=== PATIENT | male | born 1935 | race Caucasian/White ===

== ENCOUNTER → 2019-07-12 | Outpatient (CLI) | payer MEDICARE, SELFPAY ==
--- NOTE | 2019-07-12 08:00 | PROSB_PTH ---
PATIENT: LOWELL SNOW LOC: [facility] U#:[id number] AGE/SX: 84/M ROOM: RE07/12/[address]: Dr. Laxmi Warren MD : 1935 BED: DIS: 07/12/2019 SPEC #: [id number] RECD: 07/13/19 09:02 STATUS: CARLA TOO #: [id number] GREGORY: 07/12/19 08:[address]: Dominick Gibson DEPT: SURGICAL PATHOLOGY RECD BY: Tiago Garcia ENTERED: 07/13/19 09:03 SP TYPE: PROST BX OTHR DR: Dr. Laxmi Warren MD Tissues: Prostate, NOS Procedures: Surgery Specimen Level IV HEADER OPERATION: Prostate biopsy PRE-OP DIAGNOSIS: R97.20 TISSUE SUBMITTED: Prostate biopsy MICROSCOPIC DIAGNOSIS Prostate, needle core biopsy: Adenocarcinoma. Christy grade: 8 (5+3) Cores involved: 2 out of 2 cores Tissue involved: >95% Greatest tumor length: 1.2 mm Perineural invasion: Present. AM:nereida 07/14/19 COMMENT Case has been reviewed in consultation with Dr. Wild who concurs with the above diagnosis. IDC:SJ MICROSCOPIC DESCRIPTION Slides are reviewed. GROSS DESCRIPTION Received in fixative is one container labeled with the patient's name and designated prostate biopsy. The specimen consists of two elongated fragments of light wright-white soft tissue measuring 1.5 and 2 cm in length and 0.1 cm in diameter. The specimen is totally submitted in one cassette. / KATHRYN:nereida 07/13/19 TC:0 CPT: 64141
== END | disposition home or self-care (01) ==
LOC: LABSPEC 16:39
PROVIDERS: Referring Provider Family Medicine; Visit Provider Family Medicine
DX: R97.20 Elevated prostate specific antigen [PSA] (principal)
CPT/HCPCS: 88305

== ENCOUNTER 2020-04-24 21:27 | Inpatient (IN) | payer MEDICARE, SELFPAY ==
--- NOTE | 2020-04-24 21:21 | ECHOD_ITS ---
Reason For Study: ARRHYTHMIA Procedure This was a 2D Doppler, Color Flow transthoracic echocardiogram. The study was technically difficult. Poor parasternal accoustic windows. Exam performed in supine position due to left hip/leg pain. Exam performed portable in patient room. Dr. Keene notified of abnormal ejection fraction. Left Ventricle Moderately dilated left ventricle. Severe segmental systolic dysfunction (see wall motion). The estimated ejection fraction is 20 %. There is evidence of diastolic dysfunction. Infero-Basal: Severely Hypokinetic. Basal inferoseptal: Severely Hypokinetic. Mid-Anterior : Akinetic. Mid- Lateral : Akinetic. Mid-Posterior: Akinetic. Mid-Inferior: Severely Hypokinetic. Mid-inferoseptal : Akinetic. Mid-anteroseptal : Akinetic. Anterior [place] : Akinetic. Inferior [place] : Severely Hypokinetic. Lateral [place] : Akinetic. Septal [place] : Akinetic. Right Ventricle Normal RV size. Normal systolic function. Atria The left atrium is moderately enlarged. Normal right atrium. No doppler evidence for ASD. Mitral Valve There is no mitral annular calcification. Normal mitral valve. Mild (1+) mitral valve insufficiency. Tricuspid Valve Normal tricuspid valve. Trivial tricuspid valve insufficiency. Right ventricular systolic pressure estimated to be 48 mmHg. Aortic Valve Trisinus/trileaflet aortic valve. Mild focal aortic valve thickening. Mild focal aortic valve calcification. Pulmonic Valve The pulmonic valve is not well visualized. Great Vessels Normal sized aortic root. Pericardium/Pleural No pericardial effusion. MMode/2D Measurements & Calculations LVIDd: 6.1 cm IVSd: 1.2 cm Ao root diam: 3.8 cm LVIDs: 5.1 cm LVPWd: 1.2 cm RVDd: 3.3 cm FS: 16.9 % LAV(MOD-bp): 78.0 ml LA A4 area: 27.0 cm2 LA dimension(2D): 4.4 cm LAV(MOD-bp) Indexed: 40.9 ml/m2 LAV(MOD-sp2): 63.2 ml LAV(MOD-sp4): 86.8 ml Time Measurements MV dec time: 0.13 sec Doppler Measurements & Calculations MV E max rachid: 97.3 cm/sec Lat Peak E' Rachid: 9.6 cm/sec Med Peak E' Rachid: 4.5 cm/sec MV A max rachid: 131.4 cm/sec E/E' lat: 10.1 E/E' med: 21.5 MV E/A: 0.74 Ao V2 max: 147.8 cm/sec LV V1 max: 110.9 cm/sec PA V2 max: 78.1 cm/sec Ao max P.7 mmHg LV V1 max P.9 mmHg TR max rachid: 310.3 cm/sec TR max P.4 mmHg Interpretation Summary The study was technically difficult. Moderately dilated left ventricle. Severe segmental systolic dysfunction (see wall motion). The estimated ejection fraction is 20 %. The left atrium is moderately enlarged. Mild (1+) mitral valve insufficiency. Trivial tricuspid valve insufficiency. Mild focal aortic valve thickening. Mild focal aortic valve calcification. Right ventricular systolic pressure estimated to be 48 mmHg. There is evidence of diastolic dysfunction. Ordering Physician: Remedios Ferguson Referring Physician: NO PCP NOTED Performed By: Amanda Martini, GILBERT, RVT
--- NOTE | 2020-04-24 21:26 | EKG12_ITS ---
Test Reason : AM EKG Blood Pressure : / mmHG Vent. Rate : 081 BPM Atrial Rate : 081 BPM P-R Int : 164 ms QRS Dur : 110 ms QT Int : 374 ms P-R-T Axes : 037 -45 128 degrees QTc Int : 434 ms Sinus rhythm with occasional Premature ventricular complexes Left axis deviation ST & T wave abnormality, consider lateral ischemia Abnormal ECG When compared with ECG of 25-APR-2020 00:31, MANUAL COMPARISON REQUIRED, DATA IS UNCONFIRMED Confirmed by SRIKANTH RAPHAEL, RANDELL ([id number]), loan expeditor JIMENA DAWSON ([id number]) on 05/01/2020 9:40:11 AM Referred By: CORAL Confirmed By:RANDELL DUKE MD
--- NOTE | 2020-04-24 21:34 | HP.PCM_ITS ---
Problem List (1) NSTEMI (non-ST elevated myocardial infarction) Status: Acute (2) Rhabdomyolysis Status: Acute Qualifiers: Rhabdomyolysis type: traumatic Encounter type: initial encounter Qualified Code(s): T79.6XXA - Traumatic ischemia of muscle, initial encounter (3) Closed left hip fracture Status: Acute Qualifiers: Encounter type: initial encounter Qualified Code(s): S72.002A - Fracture of unspecified part of neck of left femur, initial encounter for closed fracture (4) Prostate cancer Status: Suspected (5) Elevated PSA Status: Chronic (6) BPH (benign prostatic hyperplasia) Status: Chronic Qualifiers: Lower urinary tract symptom presence: unspecified whether lower urinary tract symptoms present Qualified Code(s): N40.0 - Benign prostatic hyperplasia without lower urinary tract symptoms (7) HTN (hypertension) Status: Chronic Qualifiers: Hypertension type: essential hypertension Qualified Code(s): I10 - Essential (primary) hypertension (8) Hypothyroidism Status: Chronic Qualifiers: Hypothyroidism type: unspecified Qualified Code(s): E03.9 - Hypothyroidism, unspecified History of Present Illness Date of Admission: 04/24/20 Chief Complaint: Fall, L hip pain. The patient is an 84 y/o M w/ PMHx: Hx Urinary retention with elevated PSA/ ? Prostate CA (patient notes possibly diagnosed but didn't believe them, Chronic venous stasis disease, HTN, Hypothyroidism who presents to the [facility] as direction admission on 04/24/20 from [facility] with history of mechanical fall > 48 hours (Thursday) prior, down since with intractable L hip pain, denies any LOC or head trauma, noted to have tripped and fallen, unable to get up and was eventu ally found by a neighbor with brought to the ED for evaluation. Patient notes pain only with movement but when he has moved he notes pain severe, sharp, focally to the L hip region and 10/10. He again confirms at transition to PCU that he is currently pain free. Patient denied any chest pain or exertional dyspnea. VS: 118/94, 57, 18, 98.7, 97% on RA, 165 lb CBC: WBC 18.1, Hgb 12.6, Plts 225 without shift COVID negative (antigen) CMP: Na 137, K 4.1, Chl 103, CO2 18, BUN/Cr 40/1.3, glucose 145, AST/ALT 204/45, Alk phos 133, T bili 1.0 Trop: High sensentivity 3,174 (0-76 normal) EKG: SR without acute evidence of ischemia TCK: 6481 CXR: No acute cardiopulmonary findings L hip plain film: ? impaced hip fracture CT L hip: Distracted fracture at the base of the left femoral neck CT head and neck: No acute intracranial findings or cervical findings Medications: IVFs. Past Medical History Past Medical History (Chronic Problems): Chronic Problems Elevated PSA (Chronic) BPH (benign prostatic hyperplasia) (Chronic) HTN (hypertension) (Chronic) Hypothyroidism (Chronic) Allergies No Known Allergies Allergy (Verified 04/24/20 21:20) Home Medications: Ambulatory Orders Medication Instructions Recorded Levothyroxine [Synthroid] 25 mcg PO DAILY 04/24/20 Metoprolol(XL)Succ [Toprol Xl 25 mg PO DAILY 04/24/20 (Beta Mynor)] Tamsulosin HCl [Flomax] 0.4 mg PO DAILY 04/24/20 Surgical History: - - Patient notes left-sided temporal and scalp surgery secondary to incident as a youth. Psychiatric History: No pertinent psych hx Lives: Alone Smoking Status: Never smoker Tobacco Use: Non-smoker Alcohol: None Drugs: None - *Family History Maternal History Items: - - Patient denies any market maternal or paternal family history including heart disease, diabetes, cancer but notes I do not see a physician frequently and past and there mid to late 80s. Paternal History Items: - - Patient denies any market maternal or paternal family history including heart disease, diabetes, cancer but notes I do not see a physician frequently and past and there mid to late 80s. Review of Systems Constitutional: Reports: Malaise, Weakness, Fatigue. Denies: Anorexia, Chills, Fever, Weight Change HEENT: Reports: Difficulty Hearing. Denies: Head Aches, Sinus Congestion, Sinus Drainage Cardiovascular: Denies: Chest Pain, Palpitations Respiratory: Denies: Cough, Shortness of breath at rest, Sputum production Gastrointestinal: Denies: Abdominal Pain, Nausea, Vomiting Genitourinary: Reports: Dysuria, Frequency, Retention Musculoskeletal: Reports: Joint Pain, Joint stiffness, Joint swelling, Joint Tenderness, Leg Pain Skin: Reports: Skin Changes. Denies: Rash, Wounds Neurological: Denies: Numbness, Tingling, Focal weakness Psychiatric: Denies: Anxiety, Depression, Homicidal Ideations, Suicidal Ideations Hematologic/ Lymphatic: Reports: Easy Bruising, Easy Bleeding VTE Information - Inpt Only VTE Present on Admission: No VTE Mechan Device Prophylaxis: SCD's VTE Pharm Prophylaxis ordered?: No Reason prophylaxis not ordered:: Medical Contraindication - Holding for OR. Discussed with Cardiology, amenable to asa only given situation. Patient Problems: Active and Suspected Problems NSTEMI (non-ST elevated myocardial infarction) (Acute) Rhabdomyolysis (Acute) Closed left hip fracture (Acute) Prostate cancer (Suspected) Subjective: Patient laying in the PCU bed, no acute distress, notes pain controlled as long as he is not moving, cantankerous. Objective: Physical Examination: General: awake, alert, oriented including to self, place, recent events, remains cooperative but clearly notes he is suspicion of the healthcare industry and physicians, does admit that he may have been told he has prostate cancer but did not believe them, laying in the PCU bed, in no apparent distress. Skin: normal color, turgor, no icterus, cyanosis except significant bilateral lower extremity chronic venous stasis skin changes. HEENT: AT/NC, EOMI, PERRLA, dry MM, poor oral/dental care, no carotid bruits or JVD noted. Lungs: CTA bilaterally, moderate effort, mild decrease BL bases, no rales, ronchi or wheezing. Heart: Regular rate and rhythm; no gallop, rub audible. Abdomen: soft, thinner habitus, NTTP, ND, normal BS, no HSM. Extremities: no cyanosis, clubbing, or edema, see skin w/ significant BL LE stasis disease, L hip fracture. Neurological: patient awake, alert, oriented as noted; cognitive function suspect near baseline intact; pupils equally reactive to light and accomodation; cranial nerves II-XII grossly normal, moving all 4 extremities but limited given L hip fracture, no focal deficits otherwise, strength accordingly severely globally decreased. Psychiatric: affect appears fatigued, cantankerous, no acute evidence of depressive or anxiety feelings. - Physical Exam Current Medications Acetaminophen (Acetaminophen 325 Mg Tablet) 650 mg PO Q6H PRN PRN PRN Reason: Pain Score 1-10/Temp > 100.7 F Al Hydroxide/Mg Hydroxide (Mag Hydrox/Al Hydrox/Simeth 30 Ml Udc) 30 ml PO Q6H PRN PRN PRN Reason: Gastric Burning Albuterol Sulfate (Albuterol 2.5 Mg/3 Ml Vial.Neb.) 2.5 mg INHALATION Q2H PRN PRN PRN Reason: Dyspnea, wheezing Aspirin (Aspirin 81 Mg Tab.Chew) 81 mg PO DAILY@0800 [facility] Atorvastatin Calcium (Atorvastatin Calcium 10 Mg Tablet) 10 mg PO QHS [facility] Famotidine (Famotidine 20 Mg Tablet) 20 mg PO BID [facility] Guaifenesin (Guaifenesin 10 Ml Udc (200mg/10ml)) 20 ml PO Q4H PRN PRN PRN Reason: COUGH Hydralazine HCl (Hydralazine 20 Mg/Ml Vial) 10 mg IV Q4H PRN PRN PRN Reason: SBP > 160 Sodium Chloride () 1,000 mls @ 150 mls/hr IV .Q6H40M [facility] Levothyroxine Sodium (Levothyroxine 25 Mcg Tablet) 25 mcg PO DAILY [facility] Magnesium Hydroxide (Magnesium Hydroxide 30 Ml Udc) 30 ml PO DAILY PRN PRN PRN Reason: Constipation Melatonin (Melatonin 3 Mg Tablet) 3 mg PO QHS PRN PRN PRN Reason: INSOMNIA Metoprolol Succinate (Metoprolol(Xl)Succ 25 Mg Tablet) 25 mg PO DAILY [facility] Morphine Sulfate (Morphine 2 Mg/Ml Syringe) 2 mg IV Q3H PRN PRN PRN Reason: Pain Score 6-10 Nitroglycerin (Nitroglycerin (Inpatient Use) 0.4 Mg Tab.Subl) 0.4 mg SUBLINGUAL Q5M PRN PRN Reason: CARDIAC/CHEST PAIN Ondansetron HCl (Ondansetron 4 Mg/2 Ml Vial) 4 mg IV Q8H PRN PRN PRN Reason: NAUSEA/VOMITING Oxycodone HCl (Oxycodone 5 Mg Tablet) 5 mg PO Q4H PRN PRN PRN Reason: Pain Score 4-5 Prochlorperazine Edisylate (Prochlorperazine 10 Mg/2 Ml Vial) 5 mg IV Q4H PRN PRN PRN Reason: Breakthrough Nausea/Vomiting Psyllium Hydrophilic Mucilloid (Psyllium 1 Packet) 1 packet PO DAILY PRN PRN PRN Reason: Constipation Senna/Docusate Sodium (Senna/Docusate Sodium 1 Tablet) 2 tablet PO BID PRN PRN PRN Reason: Constipation Tamsulosin HCl (Tamsulosin Hcl 0.4 Mg Capsule) 0.4 mg PO DAILY JO Throat Lozenges (Benzocaine/Menthol 1 Lozenge) 1 lozenge MUCOUS MEM Q2H PRN PRN PRN Reason: SORE THROAT Assessment/Plan All Active Problems NSTEMI (non-ST elevated myocardial infarction) (Acute) Rhabdomyolysis (Acute) Closed left hip fracture (Acute) The patient is an 84 y/o M w/ PMHx: Hx Urinary retention with elevated PSA/? Prostate CA, HTN, Hypothyroidism who presents to the [facility] as direction admission on 04/24/20 from [facility] with history of mechanical fall > 48 hours (Thursday) prior, down since with intractable L hip pain, denies any LOC or head trauma, noted to have tripped and fallen, unable to get up and was eventually found by a neighbor with brought to the ED for evaluation with OSH ED evidence NSTEMI, rhabdo and imaging concerning for possible pathological fx. 1. General debility, L hip pain s/p mechanical fall w/ distracted fracture base of the left femoral neck, suspicious for Pathologic fracture: Plain film noting questionable impacted hip fracture with follow-up CT of the left hip with evidence distracted fracture of the base of the left femoral neck, CT head and neck with no acute intracranial findings or cervical findings noted to be cleared per outside facility ED physician. Given patient presentation with NSTEMI and rhabdomyolysis discussed patient prior to decision for transfer with Dr. Cardoza with plan work-up as noted below prior to OR. Orthopedic surgery consulted him outside hospital ED and discussed the case additionally with Dr. Gao given complicated presentation. Will admit to PCU, maintain NPO after midnight with plan cardiology work-up as noted and if cleared possibly able to go to the OR 04/24/2020, continue judicious hydration given rhabdomyolysis concurrently, obtain TSH, UA, UCx, rojas placement, monitor I/Os, frequent positioning, fall precautions, pain, anti-emetic regimen. PT/OT following operative intervention. CM consulted for discharge planning. COVID antigen testing at OSH ED negative of note. NSQIP with patient risk significantly above average and given rhabdomyolysis with NSTEMI risk further elevated with plan cardiology consultation. Discussed patient with cardiology and requested continued cardiac enzyme cycling, repeat EKGs, echocardiogram, planned a.m. evaluation per their service, aspirin therapy, FLP, magnesium level. Given patient's fracture and clinical presentation they noted possible amenability to transition to OR with intervention per Dr. Gao pending these items. Discussed with Dr. Gao and encouraged if able to go to reduce anesthetic exposure, agreed with potentially spinal. 2. Acute NSTEMI versus cardiac enzyme elevation secondary to acute rhabdomyolysis #3: EKG in ED w/ sinus rhythm with no acute evidence of ischemia per outside facility, CXR w/ no acute cardiopulmonary findings. Trop high- sensitivity elevated, 3,174 (0-76 normal). Will admit to PCU, maintain on a monitored bed, continue serial cardiac enzymes and EKGs. Obtain magnesium level upon admission. Continue medical management w/ asa, BB, add low dose statin w/ AM FLP. Echocardiogram requested. Cardiology consulted and will continue plan as noted, pending further evaluation may be potentially cleared for OR for intervention per orthopedic surgery therefore will maintain n.p.o. status as noted above. If significant findings may require cardiac catheterization prior and depending on what is found patient may have difficulty having intervention for #1. ASA, NG, morphine. 3. Acute rhabdomyolysis: Secondary to recent mechanical fall, downtime greater than 48 hours, outside ED total creatinine kinase 6481, administered some IV fluids at outside facility, will continue to aggressively hydrate, trend T CK in a.m., pain control, monitor urine output especially given patient history of urinary retention. 4. Leukocytosis, suspected stress response: Chest x-ray with no acute cardiopulmonary findings, will obtain UA/UX given history of urinary retention with plan Rojas placement given immobility, suspect associated with recent mechanical fall, fracture with prolonged downtime. 5. History of urinary retention, BPH w/ elevated PSA, Suspect Prior Prostate CA Diagnosis from discussions but poor historian: UA, UX as noted per #1, Rojas catheter planned given immobility, monitor for any retention following removal. Continue Flomax. From discussions with Dr. Gao findings on films suspicious for pathological fracture. Will request PSA level. May need urology consultation but patient seems very reticent to be treated or evaluated for cancer and notes disbelieve with prior evaluations. 6. Hypothyroidism: Continue home synthroid regimen, TSH pending. 7. Hypertension: Continue home regimen including metoprolol, pending trending may consider addition of FAVIO inhibitor especially given NSTEMI, PRN hydralazine. 8. GERD: We will maintain on famotidine. 9. Bilateral lower extremity chronic venous stasis skin changes, Possible PAD: We will request wound RN consultation as may benefit from localized care. Notes chronic BL LE pain for several years, will add gabapentin, added asa as noted and low dose statin. May need further vascular evaluation. 10. DVT prophylaxis: SCDs, holding chemoprophylaxis for OR even in setting of NSTEMI as noted, discussed with Dr. Cardoza, amenable to aspirin 81 mg at this time pending further evaluation. 11. CODE status: Patient is having healthcare power of civil attorney nor living will set up but states his niece Seda would certainly be the individual he would appoint to help him make decisions. Encouraged him to consider setting these items up and noted case management/social worker delinquency prevention to assist if he was interested. Discussed CODE status at length including difference between FULL code, DNR-CCA and DNR-CC status. Following discussions about the differences in these status, requested DNR-CCA, no intubation status. Advanced Care Planning Face to Face Time: 16 minutes. Inpatient E&M: 90370 Init Hosp L3 Procedures: 40896 Advncd Care Plan 30 Min
[2020-04-24 22:10] VITALS: BP 127/75; PULSE 88; RESP 18; TEMP 36.8; O2SAT 94
[2020-04-24 22:23] VITALS: BMI 22.0
[2020-04-24 22:24] VITALS: BMI 21.9
[2020-04-24 22:51] VITALS: PULSE 93
[2020-04-24] MEDS: Atorvastatin Calcium 10 MG Tablet PO (23:01)
[2020-04-24] MEDS: Famotidine 20 MG Tablet PO (23:01)
[2020-04-24] MEDS: 0.9% Normal Saline 1,000 ML 150 ML IV (23:01)
[2020-04-25] VITALS (21 sets, daily range): BP systolic 0–154; BP diastolic 0–67; PULSE 0–92; RESP 12–21; TEMP 36–37.2; O2SAT 93–100; BMI 22.0
--- NOTE | 2020-04-25 | IMM_PTH ---
PATIENT: LOWELL SNOW LOC: [facility] U#:[id number] AGE/SX: 84/M ROOM: [facility] RE04/24/[address]: Dr. Syed Webster DO : 1935 BED: 1 DIS: 04/27/2020 SPEC #: [id number] RECD: 05/02/20 11:40 STATUS: CARLA REQ #: [id number] GREGORY: 04/25/20 00:[address]: Malik Gao DEPT: IMMUNOHISTOCHEMISTRY RECD BY: Arlene Stewart ENTERED: 05/02/20 11:42 SP TYPE: IMMUNO OTHR DR: MD Dr. Judd Delaney MD Dr. Mark Tereletsky, DO Dr. Paul Moodispaw, MD No Primary Care Phys Tissues: A - Femoral region, NOS Procedures: RCC (add) NAPSIN A (add) CK20 (add) CK5-6 (add) CK7 (add) CK8 (add) HEP PAR (add) TTF1 (add) Pankeratin (initial) P40 (add) PSAP (add) PHYSICIAN & INSTITUTION [place] [phone] SPECIMEN INFORMATION: Tissue Source: A - Left femoral neck bone biopsy Clinical Info: Left displaced femoral neck fracture Specimen Number: [id number] CPT code: 93995, 26306 x10 METHODOLOGY: Deparaffinized sections of prefer/formalin-fixed tissue or PAP/DQ stained slides are incubated with monoclonal/polyclonal antibodies/oligonucleotide probes. Localization is made via biotin free immunoperoxidase method. Appropriate controls are performed and reacted as expected. Results on target cell population are indicated in the following table: RESULTS: ANTIBODY / CLONE RESULT Block A2 AE1-3 (AE1/AE3/PCK26) positive CK7 (OV-TL12/30) negative CK8 (87cakbI01) positive CK20 (KS20.8) positive, rare cells TTF-1 (8G7G3/1) negative Napsin A (Rabbit Polyclonal) negative HepPar (OCh1E5) negative RCC (PN-15) negative PSAP (PASE/4LJ) positive CK5-6 (D5 & 1684) negative P40 (BC28) negative These tests were developed and their performance characteristics determined by [facility]. They may not have been cleared or approved by the U.[place]. Food and Drug Administration. The FDA has determined that such clearance or approval is not necessary. The above immunohistochemical/dualISH markers are ordered and reviewed by the Pathologist. INTERPRETATION: A. Left femoral neck bone, biopsy: Metastatic adenocarcinoma, consistent with prostatic primary. SJ:nereida 05/04/20
--- NOTE | 2020-04-25 | HIP_PTH ---
PATIENT: LOWELL SNOW LOC: [facility] U#:[id number] AGE/SX: 84/M ROOM: [facility] RE04/24/[address]: Dr. Syed Webster DO : 1935 BED: 1 DIS: 04/27/2020 SPEC #: [id number] RECD: 04/26/20 10:30 STATUS: CARLA REQ #: [id number] GREGORY: 04/25/20 00:[address]: Malik Gao DEPT: SURGICAL PATHOLOGY RECD BY: Nacho Murphy ENTERED: 04/26/20 12:02 SP TYPE: TOTAL HIP OTHR DR: MD Dr. Judd Delaney MD Dr. Mark Tereletsky, DO Dr. Paul Moodispaw, MD Dr. Steven Widmer, MD No Primary Care Phys Tissues: A - Hip, NOS B - Hip, NOS Procedures: Decalcification bone/plaque Surgery Specimen Level IV Comments: @ Ordering doctor for DEC edited from to DR.SWIDME Lino by TERA at 04/26/20 1401 @ Ordering doctor for SUIV edited from to @ by TERA at 04/26/20 1401 @ Submitting doctor edited from to @ by TERA at 04/26/20 1401 HEADER OPERATION: Hemiarthroplasty left hip, posterior, cemented PRE-OP DIAGNOSIS: Left displaced femoral neck fracture TISSUE SUBMITTED: A - Bone biopsy left femoral neck, B - Left femoral head MICROSCOPIC DIAGNOSIS A. Bone biopsy left femoral neck: Pieces of bone with metastatic adenocarcinoma, consistent with prostate primary. See comment. B. Left femoral head and tissue: Femoral head with metastatic adenocarcinoma. See comment. SJ:nereida 05/02/20 COMMENT Tumor is both specimen shows similar morphology and extensive areas of necrosis. A. Immunohistochemistry ([id number]) supports the above diagnosis. Please make reference to previous specimen ([id number]) prostate, needle core biopsy with diagnosis of adenocarcinoma. MICROSCOPIC DESCRIPTION Slides are reviewed. GROSS DESCRIPTION A - Received in fixative is one container labeled with the patient's name and designated bone biopsy left femoral neck. The specimen consists of multiple irregular fragments of light to dark wright bone and indurated soft tissue that in aggregate measure 5 x 5 x 1.2 cm. Transplant Coordinator portions are submitted in two cassettes after decalcification. B - Received is one container labeled with the patient's name and designated femoral head and tissue. The specimen consists of a wright femoral head measuring 7 x 4.5 x 4.5 cm. The articular surface is smooth and glistening. The nonarticular surface is irregular and hemorrhagic consistent with fracture site. Transplant Coordinator sections are submitted in two cassettes after decalcification. / AM:nereida 04/26/20 TC:0 CPT: 01439 x2, 96044 x2
[2020-04-25 00:56] LABS: Color, Urine Yellow (Yellow); Glucose, Dipstick Normal (Normal); Ketone-Dipstick 50 mg/dl (Negative); Leukocyte Esterase-Dipstick 500 /ul (Negative); Nitrite-Dipstick Positive (Negative); Occult Blood-Urine 150 /ul (Negative); Protein-Dipstick 30 mg/dl (Negative); Urine Bilirubin Dipstick Negative (Negative); Urine Clarity Cloudy (Clear); Urine Urobilinogen 1 mg/dl (Normal)
[2020-04-25 01:07] LABS: Bacteria 4+ /hpf (None Seen); White Blood Cells 25-50 SEEN /hpf (0-5)
[2020-04-25] MEDS: oxyCODONE 5 MG Tablet PO (01:07)
[2020-04-25 01:08] LABS: Red Blood Cells-Urine 0-5 SEEN /hpf (0-5)
[2020-04-25 01:09] LABS: Amorphous Sediment 2+; Mucous, Urine RARE /hpf (<or=2+)
[2020-04-25 01:11] LABS: Squamous Epithelial Cells - UA 0-5 SEEN /hpf (0-5)
[2020-04-25 01:12] LABS: Coarse Granular Cast 0-5 SEEN /lpf (0-5 /lpf)
[2020-04-25] MEDS: 0.9% Saline Lock 10 ML Syringe IV (01:59)
[2020-04-25 02:10] LABS: International Normalized Ratio 1.4; Prothrombin Time (Protime)PT. 16.2 SECONDS (11.7-14.9)
[2020-04-25 02:11] LABS: Partial Thromboplast Time 30.9 Seconds (24.1-36.2)
[2020-04-25] MEDS: Heparin Injection (Vial) 5,000 UNIT/ML VIAL 5000 UNIT IV (02:17)
[2020-04-25] MEDS: HEPARIN/D5w 25,000 UNITS 25,000 UNITS/250 ML IV.SOLN. 11 UNITS IV (02:18)
[2020-04-25 03:29] LABS: Absolute Lymphocyte Count 0.83 X10^3/uL (0.83-4.51); Absolute Neutrophil Count 11.1 X10^3/uL (2.0-7.7); Basophil# 0.01 X10^3/uL; Basophil% 0.1 % (0-1); Eosinophil# 0.01 X10^3/uL; Eosinophils% 0.1 % (0-5); Hematocrit 33.1 % (40-54); Hemoglobin 11.1 g/dL (13.0-16.5); Lymphocyte # 0.83 X10^3/ul (4.0); Lymphocyte % 6.4 % (19-41); Mean Corp Hgb Conc 33.5 g/dL (32-36); Mean Corpuscular Hgb 35.6 pg (27.0-32.0); Mean Corpuscular Volume 106.1 fL (80-94); Mean Platelet Vol. 8.7 fl (6.2-12.0); Monocyte% 7.7 % (0-10); NRBC Flagged by Analyzer 0 % (0-5); Neutrophil # 11.05 X10^3/uL (2.7-7.7); Neutrophil % 85.2 % (47-70); Platelet Count 184 K/mm3 (150-450); RBC Distribution Width CV 13.3 % (11.6-14.6); RBC Distribution Width SD 51.6 fl (35.1-43.9); Red Blood Count 3.12 M/mm3 (4.6-6.2)
[2020-04-25 04:09] LABS: ALB/GLOB Ratio 0.9 RATIO (0.9-2.4); AST(SGOT) 147 U/L (15-37); Alanine Aminotransfer ALT/SGPT 37 U/L (16-61); Albumin, Serum 3.1 g/dL (3.2-5.0); Alkaline Phosphatase 115 U/L (45-117); Anion Gap 11 (5-15); BUN 44 mg/dL (7-18); CPK Total, Creatine Kinase 3048 U/L (39-308); Calcium,Total 8.4 mg/dL (8.5-10.1); Chloride 109 mmol/L (98-107); Cholesterol 137 mg/dL (200); EST Glomerular Filtration Rate 75 mL/min (>60); Est Glom Filt Rate - Afr Amer 91 mL/min (>60); Estimated Creatinine Clearance 54.62 ml/min; Globulin 3.4 g/dL (2.2-4.2); Glucose 125 mg/dL (74-106); High Density Lipoprotein 61 mg/dL; Magnesium 2.5 mg/dL (1.6-2.6); Potassium 3.8 mmol/L (3.5-5.1); Protein, Total 6.5 g/dL (6.4-8.2); Sodium Level 140 mmol/L (136-145); T4 Free Direct 0.48 ng/dL (0.76-1.46); Triglycerides 53 mg/dL; Very Low Density Lipoprotein 11 mg/dL (5-40)
[2020-04-25] MEDS: 0.9% Normal Saline 1,000 ML 150 ML IV (05:43)
[2020-04-25] MEDS: Levothyroxine 25 MCG TABLET PO (05:46)
[2020-04-25 08:44] LABS: Partial Thromboplast Time 116.7 Seconds (24.1-36.2)
--- NOTE | 2020-04-25 09:05 | PCM.CONS.C ---
Problem List (1) NSTEMI (non-ST elevated myocardial infarction) Status: Acute (2) Murmur, cardiac Status: Acute (3) Rhabdomyolysis Status: Acute Qualifiers: Rhabdomyolysis type: traumatic Encounter type: initial encounter Qualified Code(s): T79.6XXA - Traumatic ischemia of muscle, initial encounter (4) Closed left hip fracture Status: Acute Qualifiers: Encounter type: initial encounter Qualified Code(s): S72.002A - Fracture of unspecified part of neck of left femur, initial encounter for closed fracture (5) HTN (hypertension) Status: Chronic Qualifiers: Hypertension type: essential hypertension Qualified Code(s): I10 - Essential (primary) hypertension (6) Hypothyroidism Status: Chronic Qualifiers: Hypothyroidism type: unspecified Qualified Code(s): E03.9 - Hypothyroidism, unspecified (7) Elevated PSA Status: Chronic (8) UTI (urinary tract infection) Status: Acute Reason for Consult Date of Consultation: 04/25/20 History of Present Illness: The patient is a 84 year old white male who is referred for preoperative cardiovascular evaluation based upon concerns of abnormal cardiac enzymes and a cardiac murmur in the setting of concerns of rhabdomyolysis secondary to a fall secondary to a left hip fracture superimposed upon a history of hypertension, findings compatible with hypothyroidism, and elevated PSA concerning for prostate carcinoma. The patient states he lives alone. He denies any ongoing chest discomfort or difficulty breathing. He does not recall any palpitations or rapid heart rate sensations. He does not recall any near syncopal or syncopal events. He does not recall falling recently. However he does not recall the details of the fall. He apparently was supine for greater than 24 hours potentially going on 48 hours, based upon information obtained from the [facility] medical staff, before he was found. He was taken to his local emergency department. There he underwent emergency department evaluation. He was diagnosed with an abnormal high-sensitivity troponin I level, abnormal CPK level, abnormal ECG, and findings compatible with a left hip fracture. He was also reported as COVID-19 negative. He was subsequently referred to [facility] for further evaluation and care of his medical/surgical conditions. Since being at [facility] he has been resting in bed. He has denied any ongoing symptoms of classic angina pectoris and has had no obvious evidence of CHF or pulmonary edema. He has remained in sinus rhythm. His troponin I levels have been abnormal. His ECG has demonstrated findings compatible with sinus rhythm with PACs with left axis deviation with nonspecific ST and T wave abnormality with sideration to lateral myocardial ischemia, which, is similar to his outside hospital ECG. He does not recall ever being diagnosed with any cardiovascular condition, undergoing any cardiovascular studies, and states he does not follow on a regular basis with any physician. He lives alone. Of note, during his consultation, he stated that he had been at [facility] for at least a week waiting for further evaluation and care. [] Past Medical History Allergies/Adverse Reactions: Allergies No Known Allergies Allergy (Verified 04/24/20 22:26) Home Medications: Ambulatory Orders Medication Instructions Recorded Levothyroxine [Synthroid] 25 mcg PO DAILY 04/24/20 Metoprolol(XL)Succ [Toprol Xl 25 mg PO DAILY 04/24/20 (Beta Mynor)] Tamsulosin HCl [Flomax] 0.4 mg PO DAILY 04/24/20 Past Medical History (Chronic Problems): Chronic Problems Elevated PSA (Chronic) BPH (benign prostatic hyperplasia) (Chronic) HTN (hypertension) (Chronic) Hypothyroidism (Chronic) Surgical History: - - Patient notes left-sided temporal and scalp surgery secondary to incident as a youth. Psychiatric History: No pertinent psych hx - *Family History Maternal History Items: - - Patient denies any market maternal or paternal family history including heart disease, diabetes, cancer but notes I do not see a physician frequently and past and there mid to late 80s. Paternal History Items: - - Patient denies any market maternal or paternal family history including heart disease, diabetes, cancer but notes I do not see a physician frequently and past and there mid to late 80s. Lives: Alone Smoking Status: Never smoker Tobacco Use: Non-smoker Alcohol: None Drugs: None Review of Systems - Review of Systems General: Denies: Fever, Night Sweats, Fatigue Cardiovascular: Denies: Chest Discomfort, Shortness of Breath, Orthopnea, PND, Peripheral Edema, Palpitations, Lightheadedness, Dizziness, Near Syncope, Syncope Respiratory: Denies: Cough, Sputum Production, Hemoptysis Gastrointestinal: Denies: Hematemesis, Hematochezia, Melena Genitourinary: Denies: Dysuria, Hematuria Muscoloskeletal: Reports: Joint Pain Skin: Denies: Rash Subjectve: Is an 84-year-old white male who appears to be resting reasonably comfortably at the moment in no acute distress. Objective: Vital Signs Temp Pulse Resp BP Pulse Ox 98.0 F 84 17 121/58 H 95 04/25/20 05:32 04/25/20 07:00 04/25/20 05:32 04/25/20 05:32 04/25/20 05:32 Oxygen Delivery Method Room Air Weight: 158 lb 1.143 oz Body Mass Index (BMI) 22.0 Intake and Output for Last 24 Hours 04/23/20 04/24/20 04/25/20 23:59 23:59 23:59 Intake Total 100 / 100 1300.00 / 1300.00 Output Total 350 / 350 450 / 450 Balance -250 / -250 850.00 / 850.00 General: Awake, Cooperative, No Acute Distress HEENT: Atraumatic, Normocephalic, PERRL, EOMI, Sclera Non Icteric Neck: Supple, Good ROM, No JVD Lungs: Clear to auscultation Cardiovascular: Regular Rhythm, Normal S1, Normal S2 Murmur Murmur: Grade 2/6, Mid Systolic, LLSB, LVOT, Sternal Notch Vascular: No Carotid Bruits Abdomen: Bowel Sounds Present, Soft Extremities: No edema 04/25/20 00:45: Troponin I 4.460 H* 04/25/20 00:45: Urine Color Yellow, Urine Clarity Cloudy, Urine pH 5.0, Ur Specific [place] 1.030, Urine Protein 30 H, Urine Glucose (UA) Normal, Urine Ketones 50 H, Urine Occult Blood 150 H, Urine Nitrite Positive H, Urine Bilirubin Negative, Urine Urobilinogen 1 H, Ur Leukocyte Esterase 500 H, Urine RBC 0-5 SEEN, Urine WBC 25-50 SEEN 04/25/20 01:50: PT 16.2 H, INR 1.4, APTT 30.9 04/25/20 03:20: WBC 13.0 H, RBC 3.12 L, Hgb 11.1 L, Hct 33.1 L, MCV 106.1 H, MCH 35.6 H, MCHC 33.5, Plt Count 184, MPV 8.7, Immature Gran % (Auto) 0.500, Neut % (Auto) 85.2 H, Lymph % (Auto) 6.4 L, [place] % (Auto) 7.7, Eos % (Auto) 0.1, Baso % (Auto) 0.1, Absolute Neuts (auto) 11.1 H, Nucleated RBC % 0 04/25/20 03:20: Sodium 140, Potassium 3.8, Chloride 109 H, Carbon Dioxide 20.0 L, Anion Gap 11, BUN 44 H, Creatinine 1.00, Est GFR (MDRD) Af Amer 91, Est GFR (MDRD) Non-Af 75, BUN/Creatinine Ratio 44.0 H, Glucose 125 H, Calcium 8.4 L, Magnesium 2.5, Total Bilirubin 0.60, Troponin I 4.610 H*, Triglycerides 53, Cholesterol 137, LDL Cholesterol 65, VLDL Cholesterol 11, HDL Cholesterol 61 04/25/20 06:30: Troponin I 4.240 H* 04/25/20 08:10: APTT 116.7 H* Rhythm: Sinus rhythm EKG: As noted above ECHO: Pending Assessment/Plan 1. Non-ST segment elevation NV The patient has abnormal cardiac enzymes/troponin I levels at the outside institution as well as at this institution compatible with a non-ST segment elevation NV. It is unclear at this time as to whether or not this may have been a primary acute coronary syndrome event versus a secondary event to supply demand mismatch brought out by his other medical conditions and/or contribution from his findings compatible with rhabdomyolysis. At the present time he is being monitored. His cardiac enzymes have been followed as well as his ECG. An echocardiogram is pending to evaluate his left ventricular wall motion and systolic function. He can be treated medically as deemed appropriate with agent such as aspirin, antiplatelet/anticoagulants, nitrates, beta-blockers, lipid-lowering agents, etc. Ideally he would be considered for further evaluation in the cardiac catheterization laboratory once he is improved from his other multiple medical conditions including concerns of his rhabdomyolysis and any impact on his renal function. However at the moment he also has notation of a left hip fracture requiring left hip ORIF noting that if this does not repair he is then at increased risk for adverse events as a result of a continued left hip fracture such as thromboembolic disease, pneumonitis, etc. Thus at this time he will need to continue conservative medical management, be evaluated by orthopedic surgery and anesthesiology, and considered for left hip repair/ORIF which would be considered from a cardiovascular standpoint a high risk procedure based upon his cardiovascular findings. He would need close monitoring of his cardiac rate, rhythm, and blood pressure during and following his procedure with avoidance of significant fluctuations in his vital signs as well as avoidance of excess IV fluid/volume overload as well as avoidance of excess anemia, etc. 2. Cardiac murmur He does have a cardiac murmur. He is unaware of this. He is to be evaluated with a transthoracic echocardiogram to evaluate his valvular anatomy as well as his ventricular anatomy and function. 3. Rhabdomyolysis Based upon his history and findings he does have a clinical situation compatible with rhabdomyolysis. He will need further evaluation care as deemed appropriate with notation of monitoring his renal function. 4. Left hip fracture Again he has a left hip fracture in need of left hip ORIF. He is to be evaluated by orthopedic surgery and anesthesiology with respect to this issue. 5. Hypertension His blood pressure will be monitored and his medications can be adjusted as deemed appropriate. 6. Hypothyroidism This may be a new diagnosis for him. He will need evaluation care per internal medicine. 7. Elevated PSA The patient has an elevated PSA. This raised concerns of prostate carcinoma. This could raise concerns of metastatic disease. This could raise concern as to whether or not he has a pathologic fracture. He will need further evaluation care per internal medicine as well as other subspecialties as needed. 8. UTI There is concern based upon the patient's findings he may have a UTI. He is undergoing evaluation care per internal medicine for this. Comment: The patient's case has been previously discussed and reviewed with the patient as well as Dr. Ferguson, Dr. Webster, and Dr. Damico. This note was generated using a voice recognition system and there may be incorrect words, spelling or punctuation that were not noted when reviewing the office note prior to saving.
--- NOTE | 2020-04-25 11:25 | RAD_ITS ---
STUDY: X-RAY CHEST REASON FOR EXAM: Male, 84 years old. Hemoptysis, pre op TECHNIQUE: Single AP portable view of the chest. COMPARISON: None. FINDINGS: Scattered calcified granulomas. There is no demonstrated pleural abnormality. Normal size heart. Normal mediastinum and tyrone. Normal visualized pulmonary arteries. There is atherosclerotic calcification of the aortic arch with tortuosity. There are diffuse degenerative changes of the visualized thoracic spine. Normal visualized ribs, clavicles, and shoulders. Hiatal hernia. RAD/Chest 1 View (Portable) IMPRESSION: No acute abnormality is seen. Electronically Signed: Ap Lewis, at 12:19 EST , Service support ,
--- NOTE | 2020-04-25 12:23 | CASEMGMT ---
SW will talk with patient about discharge planning as soon as he returns from surgery and is able to communicate. Barbi VAN MSW
--- NOTE | 2020-04-25 14:04 | CON.PCM_ITS ---
Reason for Consult Date of Consultation: 04/25/20 Reason for Consultation: Left hip fracture. Requested by Dr. Ferguson History of Present Illness: The patient is a 84 year old M with multiple medical comorbidities and poor medical follow-up on a regular basis. Patient fell on Thursday and presented to the emergency department 48 hours later with significant rhabdomyolysis. He also had elevated troponins. Considering his medical comorbidities he was transferred to [facility]. He complains of left hip pain from an orthopedic standpoint. Pain is 8 out of 10. Worse with motion better with immobilization. Located in the groin. He also has a history of prostate cancer which he previously has denied. However he has elevated PSA. He is reportedly a hoarder and is basically shut in. Past Medical History Past Medical History (Chronic Problems): Chronic Problems Elevated PSA (Chronic) BPH (benign prostatic hyperplasia) (Chronic) HTN (hypertension) (Chronic) Hypothyroidism (Chronic) Allergies No Known Allergies Allergy (Verified 04/24/20 22:26) Home Medications: Ambulatory Orders Medication Instructions Recorded Levothyroxine [Synthroid] 25 mcg PO DAILY 04/24/20 Metoprolol(XL)Succ [Toprol Xl 25 mg PO DAILY 04/24/20 (Beta Mynor)] Tamsulosin HCl [Flomax] 0.4 mg PO DAILY 04/24/20 Surgical History: - - Patient notes left-sided temporal and scalp surgery secondary to incident as a youth. Psychiatric History: No pertinent psych hx Lives: Alone Smoking Status: Never smoker Tobacco Use: Non-smoker Alcohol: None Drugs: None - *Family History Maternal History Items: - - Patient denies any market maternal or paternal family history including heart disease, diabetes, cancer but notes I do not see a physician frequently and past and there mid to late 80s. Paternal History Items: - - Patient denies any market maternal or paternal family history including heart disease, diabetes, cancer but notes I do not see a physician frequently and past and there mid to late 80s. Review of Systems Constitutional: Reports: Anorexia. Denies: Chills, Fever HEENT: Denies: Head Aches, Sinus Congestion, Sinus Drainage Cardiovascular: Denies: Chest Pain, Palpitations Respiratory: Denies: Cough, Shortness of breath at rest, Sputum production Gastrointestinal: Denies: Abdominal Pain, Nausea, Vomiting Genitourinary: Denies: Dysuria Musculoskeletal: Reports: Joint Pain, Joint Tenderness Skin: Denies: Rash, Wounds Neurological: Denies: Numbness, Tingling, Focal weakness Psychiatric: Denies: Anxiety, Depression, Homicidal Ideations, Suicidal Ideations Hematologic/ Lymphatic: Denies: Easy Bruising, Easy Bleeding Patient Problems: Active and Suspected Problems NSTEMI (non-ST elevated myocardial infarction) (Acute) Rhabdomyolysis (Acute) Closed left hip fracture (Acute) Prostate cancer (Suspected) Murmur, cardiac (Acute) UTI (urinary tract infection) (Acute) Objective: Left hip x-rays show a oblique femoral neck fracture that extends from the transcervical region to the basicervical region. There is also large cysts in the femoral head as well as a cystic region at the intertrochanteric area which could be consistent with a metastatic lesion. CT scan confirms this. - Physical Exam Vitals/I&O's: Vital Signs Temp Pulse Resp BP Pulse Ox 97.8 F 83 16 133/67 H 99 04/25/20 11:15 04/25/20 11:15 04/25/20 11:15 04/25/20 11:15 04/25/20 11:15 Oxygen Delivery Method Room Air Weight: 158 lb 1.143 oz Body Mass Index (BMI) 22.0 Intake and Output for Last 24 Hours 04/23/20 04/24/20 04/25/20 23:59 23:59 23:59 Intake Total 100 / 100 2097.50 / 2097.50 Output Total 350 / 350 450 / 450 Balance -250 / -250 1647.50 / 1647.50 General: Alert, Cooperative, - - Patient is oriented to person and place. HEENT: Atraumatic, PERRLA, EOMI, Normocephalic Neck: No JVD Lungs: - - Nonlabored breathing Extremities: - - Left lower extremity: Dressing is clean dry and intact Sensations intact to light touch saphenous, sural, superficial peroneal, deep peroneal, and tibial distributions Motors intact EHL, DF, PF calves are soft and supple Microbiology Past 72 Hours 04/25/20 08:15 Mucosa - Nose SARS-CoV-2 Antigen (Rapid) - Final Laboratory Results 04/25/20 00:45: Troponin I 4.460 H* 04/25/20 00:45: Urine Color Yellow, Urine Clarity Cloudy, Urine pH 5.0, Ur Specific [place] 1.030, Urine Protein 30 H, Urine Glucose (UA) Normal, Urine Ketones 50 H, Urine Occult Blood 150 H, Urine Nitrite Positive H, Urine Bilirubin Negative, Urine Urobilinogen 1 H, Ur Leukocyte Esterase 500 H, Urine RBC 0-5 SEEN, Urine WBC 25-50 SEEN, Ur Squamous Epith Cells 0-5 SEEN, Amorphous Sediment 2+, Urine Bacteria 4+, Coarse Granular Casts 0-5 SEEN, Urine Mucus RARE 04/25/20 01:50: PT 16.2 H, INR 1.4, APTT 30.9 04/25/20 03:20: WBC 13.0 H, RBC 3.12 L, Hgb 11.1 L, Hct 33.1 L, MCV 106.1 H, MCH 35.6 H, MCHC 33.5, RDW Std Deviation 51.6 H, RDW Coeff of [place] 13.3, Plt Count 184, MPV 8.7, Immature Gran % (Auto) 0.500, Neut % (Auto) 85.2 H, Lymph % (Auto) 6.4 L, [place] % (Auto) 7.7, Eos % (Auto) 0.1, Baso % (Auto) 0.1, Absolute Neuts (auto) 11.1 H, Absolute Lymphs (auto) 0.83, Nucleated RBC % 0 04/25/20 03:20: Sodium 140, Potassium 3.8, Chloride 109 H, Carbon Dioxide 20.0 L , Anion Gap 11, BUN 44 H, Creatinine 1.00, Estim Creat Clear Calc 54.62, Est GFR (MDRD) Af Amer 91, Est GFR (MDRD) Non-Af 75, BUN/Creatinine Ratio 44.0 H, Glucose 125 H, Calcium 8.4 L, Magnesium 2.5, Total Bilirubin 0.60, AST 147 H, ALT 37, Alkaline Phosphatase 115, Total Creatine Kinase 3048 H, Troponin I 4.610 H*, Total Protein 6.5, Albumin 3.1 L, Globulin 3.4, Albumin/Globulin Ratio 0.9, Triglycerides 53, Cholesterol 137, LDL Cholesterol 65, VLDL Cholesterol 11, HDL Cholesterol 61, Total PSA 202.00 H, TSH 43.40 H, Free T4 0.48 L 04/25/20 06:30: Troponin I 4.240 H* 04/25/20 06:30: Blood Type O NEGATIVE, Antibody Screen NEGATIVE 04/25/20 08:10: APTT 116.7 H* Current Medications Acetaminophen (Acetaminophen 325 Mg Tablet) 650 mg PO Q6H PRN PRN PRN Reason: Pain Score 1-10/Temp > 100.7 F Al Hydroxide/Mg Hydroxide (Mag Hydrox/Al Hydrox/Simeth 30 Ml Udc) 30 ml PO Q6H PRN PRN PRN Reason: Gastric Burning Albuterol Sulfate (Albuterol 2.5 Mg/3 Ml Vial.Neb.) 2.5 mg INHALATION Q2H PRN PRN PRN Reason: Dyspnea, wheezing Aspirin (Aspirin 81 Mg Tab.Chew) 81 mg PO DAILY@0800 [facility] Atorvastatin Calcium (Atorvastatin Calcium 10 Mg Tablet) 10 mg PO QHS [facility] Last Admin: 04/24/20 23:01 Dose: 10 mg Documented by: Famotidine (Famotidine 20 Mg Tablet) 20 mg PO BID [facility] Last Admin: 04/24/20 23:01 Dose: 20 mg Documented by: Gabapentin (Gabapentin 100 Mg Capsule) 100 mg PO BIDCM [facility] Heparin Sodium (Porcine) (Heparin Injection (Vial) 5,000 Unit/Ml Vial) 0 unit IV UD PRN; Protocol PRN Reason: dose adjustment Sodium Chloride () 1,000 mls @ 150 mls/hr IV .Q6H40M [facility] Last Admin: 04/25/20 11:06 Dose: Not Given Documented by: Sodium Chloride () 250 mls @ 15 mls/hr IV .[id number] PRN PRN Reason: Saline Flush Sodium Chloride () 250 mls @ 15 mls/hr IV .[id number] PRN PRN Reason: Additional IVPB Infusion Ceftriaxone Sodium 2 gm/ (Sodium Chloride) 50 mls @ 100 mls/hr IV Q24@2200 [facility] Last Infusion: 04/25/20 02:48 Dose: Infused Documented by: Levothyroxine Sodium (Levothyroxine 25 Mcg Tablet) 25 mcg PO DAILY@0600 [facility] Last Admin: 04/25/20 05:46 Dose: 25 mcg Documented by: Metoprolol Succinate (Metoprolol(Xl)Succ 25 Mg Tablet) 25 mg PO DAILY [facility] Morphine Sulfate (Morphine 2 Mg/Ml Syringe) 2 mg IV Q3H PRN PRN PRN Reason: Pain Score 6-10 Nitroglycerin (Nitroglycerin (Inpatient Use) 0.4 Mg Tab.Subl) 0.4 mg SUBLINGUAL Q5M PRN PRN Reason: CARDIAC/CHEST PAIN Ondansetron HCl (Ondansetron 4 Mg/2 Ml Vial) 4 mg IV Q8H PRN PRN PRN Reason: NAUSEA/VOMITING Oxycodone HCl (Oxycodone 5 Mg Tablet) 5 mg PO Q4H PRN PRN PRN Reason: Pain Score 4-5 Last Admin: 04/25/20 01:07 Dose: 5 mg Documented by: Senna/Docusate Sodium (Senna/Docusate Sodium 1 Tablet) 2 tablet PO BID PRN PRN PRN Reason: Constipation Sodium Chloride (0.9% Saline Lock 10 Ml Syringe) 10 - 40 ml IV UD PRN PRN Reason: SALINE FLUSH Last Admin: 04/25/20 01:59 Dose: 10 ml Documented by: Tamsulosin HCl (Tamsulosin Hcl 0.4 Mg Capsule) 0.4 mg PO DAILY JO Throat Lozenges (Benzocaine/Menthol 1 Lozenge) 1 lozenge MUCOUS MEM Q2H PRN PRN PRN Reason: SORE THROAT Assessment/Plan All Active Problems NSTEMI (non-ST elevated myocardial infarction) (Acute) Rhabdomyolysis (Acute) Closed left hip fracture (Acute) Murmur, cardiac (Acute) UTI (urinary tract infection) (Acute) Patient has left displaced femoral neck fracture. Based on the fracture pattern I would like to proceed with hemiarthroplasty. I did discuss treatment options with the patient which include nonoperative treatment as well as hemiarthroplasty. As I am concerned based on CT scan and x-ray for pathologic process I will also be sending the bone for pathology. Risks and benefits of the procedure were discussed with the patient including but not limited to blood loss, DVTs, PEs, neurovascular image, infection, the risk of anesthesia including loss of life. Considering the patient's recent medical events he does understand the loss of life is significantly high for him. In addition he understands that nonoperative treatment also have a significant risk of pulmonary events and significant disability which could also lead to his demise. Based on this treatment plan decided on was to proceed with a hemiarthroplasty. [facility] Office:
[2020-04-25] MEDS: Cefazolin 2 GM in 0.9% Normal Saline 100 ML IV (14:05)
--- NOTE | 2020-04-25 14:50 | NURSING ---
Report called to Maria De Jesus GARCÍA in ICU.
--- NOTE | 2020-04-25 15:38 | PCM.OPRPT ---
Report of Operation Date of Procedure: 04/25/20 Pre-Operative Diagnosis: Left hip transcervical pathologic femoral neck fracture Post-Operative Diagnosis: Left hip transcervical pathologic femoral neck fracture Surgery/Procedure Performed:: Left posterior hip hemiarthroplasty. Femoral biopsy Description of Surgical Findings:: Stable hip equal leg lengths painting contractor: Abraham Bolaños Type of Anesthesia:: General Anesthesiologist: Judd Damico Special Medications: Ancef Specimen's removed: Femoral head and proximal femoral bone were sent for pathology Estimated Blood Loss (mL): 500 ml Fluids Replaced: 800 mL crystalloid Description of Procedure: Findings: Adequate reduction with stability of the hip and equal leg lengths measured intraoperatively. Components used: 1. Mohit Accolade C size 6 stem, 127 neck angle 2. Mohit Unitrax femoral head 51 mm, +8 mm neck femoral head and sleeve Brief history operative indications: 80-year-old male who was found down with a left hip fracture. Risks and benefits were discussed with the patient which included but were not limited to blood loss, DVTs, PEs, infection, neurovascular damage, and dislocation. In light of all this patient did agree to proceed with a total hip arthroplasty. Procedure: On the date of procedure the patient's l hip was marked in the preoperative area. Patient was then taken back to the operating room where anesthesia assumed control of the C-spine and airway and administered anesthetic. Patient was transferred to the operating table and placed in the lateral decubitus position with the affected hip up. The patient was secured in the bed with the lateral positioners and leg lengths were checked. The l lower extremity was then prepped out in a sterile fashion using chlorhexidine while the surgeon scrubbed. Upon reentering the room the l lower extremity was draped in the standard orthopedic fashion and the incision was marked. A timeout was called and everyone agreed upon the side, the site, the procedure be performed, antibiotics given, and patient's identity. At this time incision was made through skin, subcutaneous tissue, and fat down to fascia. The fascia was then incised and a Charley retractor was placed. The soft tissue was then cleared from the posterior external rotators and the piriformis was identified. Piriformis was taken down and tagged. The remainder of the short external rotators were taken down. Capsulotomy was made and the posterior capsule was tagged. The retractors were then placed inside the capsule. The femoral neck was identified and a cleanup cut was made. At this time a power corkscrew was used to remove the femoral head. Proximal femoral bone was biopsied. At this time all bony debris was removed from the acetabulum. Attention was then turned to the femur where the proximal femur was appropriately exposed using a weller retractor. The box blank machine operator helper was used to remove the lateral bone. Canal finder was used to verify the canal. The proximal femoral femur was then sequentially broached to a size 6 Accolade C broach which had an appropriate fit. The broach was left in place. The high offset neck was chosen and a 51 mm head with 8 mm offset was trialed. The hip was properly reduced using traction and external rotation. Stability was checked with the appropriate amount of shuck, no impingement with external rotation, and stable at 90? flexion and 90? internal rotation. Leg lengths were checked and were found to be equal on the table. Once the hip was determined to be stable the trial components were dislocated. The proximal femur was again exposed and the components were removed from the wound. The final components were verified and opened. The wound was copiously irrigated out with normal saline and prepped for cement while the cement was mixed. The acetabulum was checked for any residual debris. The final components were cemented into place. Excess cement was removed and cement was allowed to cure. Final head was placed. Traction and external rotation were again used to reduce the hip. After adequate reduction the hip remained stable with appropriate leg lengths. The wound was then copiously irrigated with normal saline once more, and hemostasis was obtained. The posterior capsule and piriformis were repaired through drill holes to the greater trochanter . Closure was then done using #1 Vicryl to close the fascia. A 2-0 Vicryl interrupted sutures were used to close the subcutaneous skin. Skin isabella were used for final skin closure. A sterile dressing was placed. Patient was awakened by anesthesia and transferred to the [facility]. Patient was then transferred to the PACU for recovery. Postoperative plan: Patient will get 24 hours postop antibiotics. Patient will get in-house physical therapy and will be weight-bear as tolerated. Patient will follow up in office in 2 weeks for a wound check and x-rays. DVT prophylaxis patient can continue with heparin per primary service while in-house. Recommend discharging on oral Xarelto when discharged from hospital. During the course of the procedure the physician independent producer (PE) played a vital role. Their intimate knowledge of my steps in the procedure aided in safe and expedient completion of the procedure. The PE played a vital rolls in positioning particularly in obtaining the appropriate lateral decubitus position. The PE was also vital in the retraction of soft tissues during the exposure and especially the femoral work as this is a vital part of the procedure to prevent complications and fractures. The PE was also vital and protecting soft tissues during times of bony cuts and reaming. He also played a vital role in closure with my direct supervision. The PE was also important during reduction and dislocation of the joint and trials intraoperatively. - Complications No intraoperative complications - Admit VTE Documentation VTE Present on Admission: No VTE Mechan Device Prophylaxis: SCD's, Thigh High CECILIO Hose VTE Pharm Prophylaxis ordered?: Yes
--- NOTE | 2020-04-25 16:48 | PN_ITS ---
Patient Problems: Active and Suspected Problems NSTEMI (non-ST elevated myocardial infarction) (Acute) Rhabdomyolysis (Acute) Closed left hip fracture (Acute) Prostate cancer (Suspected) Murmur, cardiac (Acute) UTI (urinary tract infection) (Acute) Subjective: Patient was seen and examined today in ICU, he underwent a left hemiarthroplasty today and there were no complications with the surgery. Patient is lethargic secondary to his pain medication and anesthesia at the time of my examination. - Physical Exam Vitals/I&O's: Vital Signs Temp Pulse Resp BP Pulse Ox 96.8 F L 75 18 149/51 H 93 04/25/20 16:17 04/25/20 16:17 04/25/20 16:17 04/25/20 16:17 04/25/20 16:17 Oxygen Delivery Method Room Air Weight: 71.7 kg Body Mass Index (BMI) 22.0 Intake and Output for Last 24 Hours 04/23/20 04/24/20 04/25/20 23:59 23:59 23:59 Intake Total 100 / 100 2327.50 / 2327.50 Output Total 350 / 350 850 / 850 Balance -250 / -250 1477.50 / 1477.50 General: No apparent distress, Well developed, Lethargic HEENT: Atraumatic, PERRLA, Normocephalic Oral: Dry Mucosa Neck: Supple, No JVD, Trachea Midline, Thyroid Normal Size and Texture Lungs: Clear to auscultation, Normal air movement, No rhonchi, No wheeze, No rales Cardiovascular: Regular rate, Regular Rhythm, Normal S1, Normal S2, No murmurs, PMI Normal, No rub noted Abdomen: Bowel Sounds Present, Soft, Non Tender, Non-Distended, No hernias noted Extremities: No clubbing, No cyanosis, No edema, Capillary Refill Less than 3 Seconds Skin: No rashes Neurological: Cranial nerves II-XII grossly intact, Neuro grossly intact Psych/Mental Status: - - Patient is lethargic he has no apparent distress Microbiology Past 72 Hours 04/25/20 08:15 Mucosa - Nose SARS-CoV-2 Antigen (Rapid) - Final Laboratory Results 04/25/20 00:45: Troponin I 4.460 H* 04/25/20 00:45: Urine Color Yellow, Urine Clarity Cloudy, Urine pH 5.0, Ur Specific Marquette 1.030, Urine Protein 30 H, Urine Glucose (UA) Normal, Urine Ketones 50 H, Urine Occult Blood 150 H, Urine Nitrite Positive H, Urine Bilirubin Negative, Urine Urobilinogen 1 H, Ur Leukocyte Esterase 500 H, Urine RBC 0-5 SEEN, Urine WBC 25-50 SEEN, Ur Squamous Epith Cells 0-5 SEEN, Amorphous Sediment 2+, Urine Bacteria 4+, Coarse Granular Casts 0-5 SEEN, Urine Mucus RARE 04/25/20 01:50: PT 16.2 H, INR 1.4, APTT 30.9 04/25/20 03:20: WBC 13.0 H, RBC 3.12 L, Hgb 11.1 L, Hct 33.1 L, MCV 106.1 H, MCH 35.6 H, MCHC 33.5, RDW Std Deviation 51.6 H, RDW Coeff of Chema 13.3, Plt Count 184, MPV 8.7, Immature Gran % (Auto) 0.500, Neut % (Auto) 85.2 H, Lymph % (Auto) 6.4 L, Shelby % (Auto) 7.7, Eos % (Auto) 0.1, Baso % (Auto) 0.1, Absolute Neuts (auto) 11.1 H, Absolute Lymphs (auto) 0.83, Nucleated RBC % 0 04/25/20 03:20: Sodium 140, Potassium 3.8, Chloride 109 H, Carbon Dioxide 20.0 L , Anion Gap 11, BUN 44 H, Creatinine 1.00, Estim Creat Clear Calc 54.62, Est GFR (MDRD) Af Amer 91, Est GFR (MDRD) Non-Af 75, BUN/Creatinine Ratio 44.0 H, Glucose 125 H, Calcium 8.4 L, Magnesium 2.5, Total Bilirubin 0.60, AST 147 H, ALT 37, Alkaline Phosphatase 115, Total Creatine Kinase 3048 H, Troponin I 4.610 H*, Total Protein 6.5, Albumin 3.1 L, Globulin 3.4, Albumin/Globulin Ratio 0.9, Triglycerides 53, Cholesterol 137, LDL Cholesterol 65, VLDL Cholesterol 11, HDL Cholesterol 61, Total PSA 202.00 H, TSH 43.40 H, Free T4 0.48 L 04/25/20 06:30: Troponin I 4.240 H* 04/25/20 06:30: Blood Type O NEGATIVE, Antibody Screen NEGATIVE 04/25/20 08:10: APTT 116.7 H* Current Medications Acetaminophen (Acetaminophen 325 Mg Tablet) 650 mg PO Q6H PRN PRN PRN Reason: Pain Score 1-10/Temp > 100.7 F Al Hydroxide/Mg Hydroxide (Mag Hydrox/Al Hydrox/Simeth 30 Ml Udc) 30 ml PO Q6H PRN PRN PRN Reason: Gastric Burning Albuterol Sulfate (Albuterol 2.5 Mg/3 Ml Vial.Neb.) 2.5 mg INHALATION Q2H PRN PRN PRN Reason: Dyspnea, wheezing Aspirin (Aspirin 81 Mg Tab.Chew) 81 mg PO DAILY@0800 [facility] Atorvastatin Calcium (Atorvastatin Calcium 10 Mg Tablet) 10 mg PO QHS [facility] Last Admin: 04/24/20 23:01 Dose: 10 mg Documented by: Enteral Nutritional Formula (Ensure Surgery 237 Ml Liquid) 237 ml PO TIDCM [facility] Famotidine (Famotidine 20 Mg Tablet) 20 mg PO BID [facility] Last Admin: 04/24/20 23:01 Dose: 20 mg Documented by: Gabapentin (Gabapentin 100 Mg Capsule) 100 mg PO BIDCM [facility] Heparin Sodium (Porcine) (Heparin Injection (Vial) 5,000 Unit/Ml Vial) 0 unit IV UD PRN; Protocol PRN Reason: dose adjustment Sodium Chloride () 1,000 mls @ 150 mls/hr IV .[id number] [facility] Last Admin: 04/25/20 11:06 Dose: Not Given Documented by: Sodium Chloride () 250 mls @ 15 mls/hr IV .[id number] PRN PRN Reason: Saline Flush Sodium Chloride () 250 mls @ 15 mls/hr IV .[id number] PRN PRN Reason: Additional IVPB Infusion Ceftriaxone Sodium 2 gm/ (Sodium Chloride) 50 mls @ 100 mls/hr IV Q24@2200 [facility] Last Infusion: 04/25/20 02:48 Dose: Infused Documented by: Levothyroxine Sodium (Levothyroxine 25 Mcg Tablet) 25 mcg PO DAILY@0600 [facility] Last Admin: 04/25/20 05:46 Dose: 25 mcg Documented by: Metoprolol Succinate (Metoprolol(Xl)Succ 25 Mg Tablet) 25 mg PO DAILY [facility] Morphine Sulfate (Morphine 2 Mg/Ml Syringe) 2 mg IV Q3H PRN PRN PRN Reason: Pain Score 6-10 Nitroglycerin (Nitroglycerin (Inpatient Use) 0.4 Mg Tab.Subl) 0.4 mg SUBLINGUAL Q5M PRN PRN Reason: CARDIAC/CHEST PAIN Ondansetron HCl (Ondansetron 4 Mg/2 Ml Vial) 4 mg IV Q8H PRN PRN PRN Reason: NAUSEA/VOMITING Oxycodone HCl (Oxycodone 5 Mg Tablet) 5 mg PO Q4H PRN PRN PRN Reason: Pain Score 4-5 Last Admin: 04/25/20 01:07 Dose: 5 mg Documented by: Promethazine HCl (Promethazine 25 Mg/Ml Syringe) 12.5 mg IM Q6H PRN PRN; Protocol PRN Reason: NAUSEA/VOMITING Senna/Docusate Sodium (Senna/Docusate Sodium 1 Tablet) 2 tablet PO BID PRN PRN PRN Reason: Constipation Sodium Chloride (0.9% Saline Lock 10 Ml Syringe) 10 - 40 ml IV UD PRN PRN Reason: SALINE FLUSH Last Admin: 04/25/20 01:59 Dose: 10 ml Documented by: Tamsulosin HCl (Tamsulosin Hcl 0.4 Mg Capsule) 0.4 mg PO DAILY JO Throat Lozenges (Benzocaine/Menthol 1 Lozenge) 1 lozenge MUCOUS MEM Q2H PRN PRN PRN Reason: SORE THROAT Medical Necessity - Tobacco Use Smoking Status: Never smoker Tobacco Use: Non-smoker Assessment/Plan All Active Problems NSTEMI (non-ST elevated myocardial infarction) (Acute) Rhabdomyolysis (Acute) Closed left hip fracture (Acute) Murmur, cardiac (Acute) UTI (urinary tract infection) (Acute) #1 transcervical left hip fracture-postop day 0 left hip hemiarthroplasty- patient will be seen by PT and OT, he will most probably need placement in a fdc facility for short-term rehab services. #2 pld-[id number]-scnnucvbye is participating in his care #3 hypothyroidism-I will start the patient back up on his thyroid medication which she had not been taking at home #4 cardiomyopathy-probably ischemic in nature, cardiology is participating in his care #5 rhabdomyolysis-due to the patient's low ejection fraction of 20%, fluids will have to be monitored closely, repeat labs #6 prostate cancer-patient has refused treatment in the past, I talked at length with his niece by phone today and he has seen Dr. Gibson in the past and has refused treatment for his prostate cancer. #7 chronic urinary retention-patient has a chronic Ramirez catheter #8 cystitis-patient will remain on antibiotics Inpatient E&M: 33695 Subs Hosp L2
[2020-04-25] MEDS: 0.9% Normal Saline 1,000 ML 75 ML IV (19:00)
--- NOTE | 2020-04-25 19:30 | RAD_ITS ---
STUDY: X-RAY - PELVIS AND LEFT HIP REASON FOR EXAM: Male, 84 years old. POST OP LEFT HIP TECHNIQUE: 2 views of the pelvis and hip. COMPARISON: None. FINDINGS: Status post left total hip replacement. Femoral and acetabular components are in situ. Alignment is anatomic. No acute fracture or dislocation. Postsurgical changes including soft tissue gas and skin isabella. RAD/Hip Min 2 Views (Portable) IMPRESSION: Anatomic alignment status post total hip replacement. Electronically Signed: Mer Martin MD at 21:16 EST Tel , Service support ,
[2020-04-25] MEDS: Atorvastatin Calcium 10 MG Tablet PO (21:08)
[2020-04-25] MEDS: Famotidine 20 MG Tablet PO (21:08)
[2020-04-26] VITALS (23 sets, daily range): BP systolic 105–147; BP diastolic 43–65; PULSE 71–97; RESP 14–25; TEMP 36.5–37.1; O2SAT 92–100
[2020-04-26 03:49] LABS: Anion Gap 5 (5-15); BUN 40 mg/dL (7-18); BUN/Creat Ratio 39.6 RATIO (10-20); Calcium,Total 8.1 mg/dL (8.5-10.1); Chloride 111 mmol/L (98-107); Creatinine, Serum 1.01 mg/dL (0.70-1.30); EST Glomerular Filtration Rate 75 mL/min (>60); Est Glom Filt Rate - Afr Amer 90 mL/min (>60); Estimated Creatinine Clearance 54.23 ml/min; Glucose 118 mg/dL (74-106); Hematocrit 30.8 % (40-54); Hemoglobin 10.2 g/dL (13.0-16.5); Mean Corp Hgb Conc 33.1 g/dL (32-36); Mean Corpuscular Hgb 36.3 pg (27.0-32.0); Mean Corpuscular Volume 109.6 fL (80-94); Platelet Count 172 K/mm3 (150-450); Potassium 3.8 mmol/L (3.5-5.1); RBC Distribution Width CV 13.2 % (11.6-14.6); RBC Distribution Width SD 52.9 fl (35.1-43.9); Red Blood Count 2.81 M/mm3 (4.6-6.2); Sodium Level 140 mmol/L (136-145); White Blood Count 10.3 K/mm3 (4.4-11.0)
--- NOTE | 2020-04-26 05:55 | EKG12_ITS ---
Test Reason : DIRECT ADMISSION EKG Blood Pressure : / mmHG Vent. Rate : 092 BPM Atrial Rate : 092 BPM P-R Int : 162 ms QRS Dur : 104 ms QT Int : 372 ms P-R-T Axes : 035 -55 113 degrees QTc Int : 460 ms Sinus rhythm with Premature atrial complexes Left axis deviation ST & T wave abnormality, consider lateral ischemia Abnormal ECG No previous ECGs available Confirmed by SRIKANTH RAPHAEL, RANDELL ([id number]), online editor JIMENA DAWSON ([id number]) on 04/30/2020 10:41:22 AM Referred By: TR Confirmed By:RANDELL DUEK MD
[2020-04-26] MEDS: Levothyroxine 25 MCG TABLET PO (05:58)
[2020-04-26] MEDS: 0.9% Normal Saline 1,000 ML 75 ML IV ×2 (05:58→18:30)
[2020-04-26] MEDS: Famotidine 20 MG Tablet PO ×2 (08:13→20:58)
[2020-04-26] MEDS: Metoprolol(XL)Succ 25 MG Tablet PO (08:13)
[2020-04-26] MEDS: Aspirin 81 MG TAB.CHEW PO (08:13)
[2020-04-26] MEDS: Ensure Surgery 237 ML LIQUID PO (08:13)
[2020-04-26] MEDS: Tamsulosin HCl 0.4 MG Capsule PO (08:14)
--- NOTE | 2020-04-26 09:43 | PCM.PN.ORT ---
Patient Problems: Active and Suspected Problems NSTEMI (non-ST elevated myocardial infarction) (Acute) Rhabdomyolysis (Acute) Closed left hip fracture (Acute) Prostate cancer (Suspected) Murmur, cardiac (Acute) UTI (urinary tract infection) (Acute) Subjective: The patient was sitting in bed upon examination in the intensive care unit. Patient denies any chest pain, shortness of breath, dizziness, lightheadedness, nausea or vomiting, or calf pain. Pain is controlled on medications. No adverse overnight events. Overall patient is doing well with regards to the hip. I did discuss case with the hospitalist and at this time patient will be transitioned to the PCU floor. They are attempting to get him set up for nursing home facility for appropriate rehab. Objective: Vital signs stable and afebrile. Patient is able to plantarflex and dorsiflex actively. Sensation is intact to light touch to saphenous, sural, superficial and deep peroneal, and tibial distribution. Dressing is clean dry and intact. Negative Homans bilaterally, negative signs and symptoms of DVT. - Physical Exam Vitals/I&O's: Vital Signs Temp Pulse Resp BP Pulse Ox 98 F 80 18 140/63 H 92 04/26/20 07:33 04/26/20 09:00 04/26/20 09:00 04/26/20 09:00 04/26/20 09:00 Oxygen Delivery Method Nasal Cannula Weight: 75 kg Body Mass Index (BMI) 22.0 Intake and Output for Last 24 Hours 04/24/20 04/25/20 04/26/20 23:59 23:59 23:59 Intake Total 100 / 100 2477.50 / 2727.50 1147.5 / 1147.5 Output Total 350 / 350 1000 / 1150 350 / 350 Balance -250 / -250 1477.50 / 1577.50 797.5 / 797.5 General: Alert, Oriented x3, Cooperative, No apparent distress Microbiology Past 72 Hours 04/25/20 08:15 Mucosa - Nose SARS-CoV-2 Antigen (Rapid) - Final Laboratory Results 04/26/20 03:30: WBC 10.3, RBC 2.81 L, Hgb 10.2 L, Hct 30.8 L, MCV 109.6 H, MCH 36.3 H, MCHC 33.1, RDW Std Deviation 52.9 H, RDW Coeff of Chema 13.2, Plt Count 172, MPV 9.0 04/26/20 03:30: Sodium 140, Potassium 3.8, Chloride 111 H, Carbon Dioxide 24.0, Anion Gap 5, BUN 40 H, Creatinine 1.01, Estim Creat Clear Calc 54.23, Est GFR (MDRD) Af Amer 90, Est GFR (MDRD) Non-Af 75, BUN/Creatinine Ratio 39.6 H, Glucose 118 H, Calcium 8.1 L Current Medications Acetaminophen (Acetaminophen 325 Mg Tablet) 650 mg PO Q6H PRN PRN PRN Reason: Pain Score 1-10/Temp > 100.7 F Albuterol Sulfate (Albuterol 2.5 Mg/3 Ml Vial.Neb.) 2.5 mg INHALATION Q2H PRN PRN PRN Reason: Dyspnea, wheezing Aspirin (Aspirin 81 Mg Tab.Chew) 81 mg PO DAILY@0800 [facility] Last Admin: 04/26/20 08:13 Dose: 81 mg Documented by: Atorvastatin Calcium (Atorvastatin Calcium 10 Mg Tablet) 10 mg PO QHS [facility] Last Admin: 04/25/20 21:08 Dose: 10 mg Documented by: Enteral Nutritional Formula (Ensure Surgery 237 Ml Liquid) 237 ml PO TIDCM [facility] Last Admin: 04/26/20 08:13 Dose: 237 ml Documented by: Famotidine (Famotidine 20 Mg Tablet) 20 mg PO BID [facility] Last Admin: 04/26/20 08:13 Dose: 20 mg Documented by: Sodium Chloride () 250 mls @ 15 mls/hr IV .[id number] PRN PRN Reason: Saline Flush Sodium Chloride () 250 mls @ 15 mls/hr IV .[id number] PRN PRN Reason: Additional IVPB Infusion Ceftriaxone Sodium 2 gm/ (Sodium Chloride) 50 mls @ 100 mls/hr IV Q24@2200 [facility] Last Infusion: 04/25/20 21:40 Dose: Infused Documented by: Sodium Chloride () 1,000 mls @ 75 mls/hr IV .[id number] [facility] Last Admin: 04/26/20 05:58 Dose: 75 mls/hr Documented by: Levothyroxine Sodium (Levothyroxine 25 Mcg Tablet) 25 mcg PO DAILY@0600 [facility] Last Admin: 04/26/20 05:58 Dose: 25 mcg Documented by: Lisinopril (Lisinopril 5 Mg Tablet) 5 mg PO DAILY [facility] Metoprolol Succinate (Metoprolol(Xl)Succ 25 Mg Tablet) 25 mg PO DAILY [facility] Last Admin: 04/26/20 08:13 Dose: 25 mg Documented by: Morphine Sulfate (Morphine 2 Mg/Ml Syringe) 2 mg IV Q3H PRN PRN PRN Reason: Pain Score 6-10 Nitroglycerin (Nitroglycerin (Inpatient Use) 0.4 Mg Tab.Subl) 0.4 mg SUBLINGUAL Q5M PRN PRN Reason: CARDIAC/CHEST PAIN Ondansetron HCl (Ondansetron 4 Mg/2 Ml Vial) 4 mg IV Q8H PRN PRN PRN Reason: NAUSEA/VOMITING Oxycodone HCl (Oxycodone 5 Mg Tablet) 5 mg PO Q4H PRN PRN PRN Reason: Pain Score 4-5 Last Admin: 04/25/20 01:07 Dose: 5 mg Documented by: Senna/Docusate Sodium (Senna/Docusate Sodium 1 Tablet) 2 tablet PO BID PRN PRN PRN Reason: Constipation Sodium Chloride (0.9% Saline Lock 10 Ml Syringe) 10 - 40 ml IV UD PRN PRN Reason: SALINE FLUSH Last Admin: 04/25/20 01:59 Dose: 10 ml Documented by: Tamsulosin HCl (Tamsulosin Hcl 0.4 Mg Capsule) 0.4 mg PO DAILY [facility] Last Admin: 04/26/20 08:14 Dose: 0.4 mg Documented by: Medical Necessity - Tobacco Use Smoking Status: Never smoker Tobacco Use: Non-smoker Assessment/Plan All Active Problems NSTEMI (non-ST elevated myocardial infarction) (Acute) Rhabdomyolysis (Acute) Closed left hip fracture (Acute) Murmur, cardiac (Acute) UTI (urinary tract infection) (Acute) 1. S/P left hip hemiarthroplasty posterior approach POD #1 2. Continue Pain Medications: Tylenol primarily for pain control with oxycodone for breakthrough pain 3. DVT Prophylaxis: Defer to primary service. Recommend placing patient on possible Xarelto postoperatively upon discharge 4. PT/OT: Weightbearing as tolerated with walker. Follow posterior hip dislocation precautions for 3 months postoperatively. 5. H & H: 10.2/30.8, asymptomatic. Postoperative anemia secondary to acute blood loss from surgery without any intraoperative complications 6. Encouraged Incentive Spirometry 7. Continue postoperative medical management per medicine 8. Disposition: From an orthopedic standpoint we will sign off of the patient. Patient will continue with weightbearing as tolerated with walker following posterior hip dislocation precautions for 3 months postoperatively. Recommend continuing with pain medications as above. Defer DVT prophylaxis to primary service but would recommend possible Xarelto upon discharge. Dressing should remain on for 5 days postoperatively. He is able to shower with the dressing as long as it is intact to the skin. We would like to see the patient back in 2 weeks for x-rays and incision check in our office. Please contact orthopedics with any concerns or complications. Otherwise appreciate consult and management of the patient.
[2020-04-26] MEDS: Lisinopril 5 MG Tablet PO (09:52)
--- NOTE | 2020-04-26 10:13 | CASEMGMT ---
Addendum entered by Kandi Elliott 04/26/20 10:42: Social Work SW spoke with Abraham Bolaños orthopedic PA who is requesting appt be set for two week followup with [facility]. Phone call to [facility] and appt set for 05/10/20 at 1515 with 1500 arrival time. Appointment entered on pt d/c appointment list. SUZY Hyatt Original Note: Social Work SW met with pt and introduced self and role of SW. Pt lives at home alone in a one story home with two steps to enter. Pt states he has been independent at home, but does not get into shower any longer for safety reasons and has groceries delivered. Pt has a home health nurse through [facility] who visits weekly but pt does not know why she comes. No other home services. Pt does have a cane but does not use it and states his home is too crowded to use a walker. No PCP listed but pt says his niece has arranged for Dr. Carmen to make home visits but pt feels this is too expensive. Pt denies having a living will or health care POA but states his niece Neva Jenkins is his contact, pt has no children and Neva mother is only living sibling. Discussed discharge plan with pt and he is aware that he cannot return home at this time and will need SNF for rehabilitation. Options provided and pt choosing [facility]. Phone call to TCU and left requesting bed availability. With pt permission, phone call to Niece Neva who is unable to talk at this time but will call SW back later today. Plan: TCU, pending acceptance and insurance authorization SUZY Hyatt
--- NOTE | 2020-04-26 10:48 | PN_ITS ---
Patient Problems: Active and Suspected Problems NSTEMI (non-ST elevated myocardial infarction) (Acute) Rhabdomyolysis (Acute) Closed left hip fracture (Acute) Prostate cancer (Suspected) Murmur, cardiac (Acute) UTI (urinary tract infection) (Acute) Subjective: Patient was seen and examined today in ICU, he is alert and oriented, he does not complain of shortness of breath or chest discomfort to this examiner. According to nursing, there is been no significant arrhythmias noted on the monitor this has been in the ICU. I talked briefly with cardiology today and they said it was okay to move the patient to PCU for further care. Talked briefly with orthopedic surgery about his care. Objective: General: No apparent distress, Well developed, alert HEENT: Atraumatic, PERRLA, Normocephalic Oral: Dry Mucosa Neck: Supple, No JVD, Trachea Midline, Thyroid Normal Size and Texture Lungs: Clear to auscultation, Normal air movement, No rhonchi, No wheeze, No rales Cardiovascular: Regular rate, Regular Rhythm, Normal S1, Normal S2, No murmurs, PMI Normal, No rub noted Abdomen: Bowel Sounds Present, Soft, Non Tender, Non-Distended, No hernias noted Extremities: No clubbing, No cyanosis, No edema, Capillary Refill Less than 3 Seconds Skin: No rashes Neurological: Cranial nerves II-XII grossly intact, Neuro grossly intact Psych/Mental Status: - - Patient is alert and oriented, he does not seem depressed or anxious - Physical Exam Vitals/I&O's: Vital Signs Temp Pulse Resp BP Pulse Ox 98 F 80 18 140/63 H 98 04/26/20 07:33 04/26/20 09:00 04/26/20 09:00 04/26/20 09:00 04/26/20 10:34 Oxygen Delivery Method Room Air Weight: 75 kg Body Mass Index (BMI) 22.0 Intake and Output for Last 24 Hours 04/24/20 04/25/20 04/26/20 23:59 23:59 23:59 Intake Total 100 / 100 2477.50 / 2727.50 1147.5 / 1147.5 Output Total 350 / 350 1000 / 1150 350 / 350 Balance -250 / -250 1477.50 / 1577.50 797.5 / 797.5 Microbiology Past 72 Hours 04/25/20 08:15 Mucosa - Nose SARS-CoV-2 Antigen (Rapid) - Final Laboratory Results 04/26/20 03:30: WBC 10.3, RBC 2.81 L, Hgb 10.2 L, Hct 30.8 L, MCV 109.6 H, MCH 36.3 H, MCHC 33.1, RDW Std Deviation 52.9 H, RDW Coeff of Chema 13.2, Plt Count 172, MPV 9.0 04/26/20 03:30: Sodium 140, Potassium 3.8, Chloride 111 H, Carbon Dioxide 24.0, Anion Gap 5, BUN 40 H, Creatinine 1.01, Estim Creat Clear Calc 54.23, Est GFR (MDRD) Af Amer 90, Est GFR (MDRD) Non-Af 75, BUN/Creatinine Ratio 39.6 H, Glucose 118 H, Calcium 8.1 L Current Medications Acetaminophen (Acetaminophen 325 Mg Tablet) 650 mg PO Q6H PRN PRN PRN Reason: Pain Score 1-10/Temp > 100.7 F Albuterol Sulfate (Albuterol 2.5 Mg/3 Ml Vial.Neb.) 2.5 mg INHALATION Q2H PRN PRN PRN Reason: Dyspnea, wheezing Aspirin (Aspirin 81 Mg Tab.Chew) 81 mg PO DAILY@0800 [facility] Last Admin: 04/26/20 08:13 Dose: 81 mg Documented by: Atorvastatin Calcium (Atorvastatin Calcium 10 Mg Tablet) 10 mg PO QHS [facility] Last Admin: 04/25/20 21:08 Dose: 10 mg Documented by: Enteral Nutritional Formula (Ensure Surgery 237 Ml Liquid) 237 ml PO TIDCM [facility] Last Admin: 04/26/20 08:13 Dose: 237 ml Documented by: Famotidine (Famotidine 20 Mg Tablet) 20 mg PO BID [facility] Last Admin: 04/26/20 08:13 Dose: 20 mg Documented by: Sodium Chloride () 250 mls @ 15 mls/hr IV .[id number] PRN PRN Reason: Saline Flush Sodium Chloride () 250 mls @ 15 mls/hr IV .[id number] PRN PRN Reason: Additional IVPB Infusion Ceftriaxone Sodium 2 gm/ (Sodium Chloride) 50 mls @ 100 mls/hr IV Q24@2200 [facility] Last Infusion: 04/25/20 21:40 Dose: Infused Documented by: Sodium Chloride () 1,000 mls @ 75 mls/hr IV .[id number] [facility] Last Admin: 04/26/20 05:58 Dose: 75 mls/hr Documented by: Levothyroxine Sodium (Levothyroxine 25 Mcg Tablet) 25 mcg PO DAILY@0600 [facility] Last Admin: 04/26/20 05:58 Dose: 25 mcg Documented by: Lisinopril (Lisinopril 5 Mg Tablet) 5 mg PO DAILY [facility] Last Admin: 04/26/20 09:52 Dose: 5 mg Documented by: Metoprolol Succinate (Metoprolol(Xl)Succ 25 Mg Tablet) 25 mg PO DAILY [facility] Last Admin: 04/26/20 08:13 Dose: 25 mg Documented by: Morphine Sulfate (Morphine 2 Mg/Ml Syringe) 2 mg IV Q3H PRN PRN PRN Reason: Pain Score 6-10 Nitroglycerin (Nitroglycerin (Inpatient Use) 0.4 Mg Tab.Subl) 0.4 mg SUBLINGUAL Q5M PRN PRN Reason: CARDIAC/CHEST PAIN Ondansetron HCl (Ondansetron 4 Mg/2 Ml Vial) 4 mg IV Q8H PRN PRN PRN Reason: NAUSEA/VOMITING Oxycodone HCl (Oxycodone 5 Mg Tablet) 5 mg PO Q4H PRN PRN PRN Reason: Pain Score 4-5 Last Admin: 04/25/20 01:07 Dose: 5 mg Documented by: Senna/Docusate Sodium (Senna/Docusate Sodium 1 Tablet) 2 tablet PO BID PRN PRN PRN Reason: Constipation Sodium Chloride (0.9% Saline Lock 10 Ml Syringe) 10 - 40 ml IV UD PRN PRN Reason: SALINE FLUSH Last Admin: 04/25/20 01:59 Dose: 10 ml Documented by: Tamsulosin HCl (Tamsulosin Hcl 0.4 Mg Capsule) 0.4 mg PO DAILY [facility] Last Admin: 04/26/20 08:14 Dose: 0.4 mg Documented by: Medical Necessity - Tobacco Use Smoking Status: Never smoker Tobacco Use: Non-smoker Assessment/Plan All Active Problems NSTEMI (non-ST elevated myocardial infarction) (Acute) Rhabdomyolysis (Acute) Closed left hip fracture (Acute) Murmur, cardiac (Acute) UTI (urinary tract infection) (Acute) #1 transcervical left hip fracture-postop day 1 left hip hemiarthroplasty- patient will be seen by PT and OT, he will most probably need placement in a long term facility for short-term rehab services. Patient will be moved to PCU for further care #2 [id number] is participating in his care #3 hypothyroidism-patient is currently on thyroid replacement medication #4 cardiomyopathy-probably ischemic in nature, cardiology is participating in his care #5 rhabdomyolysis-due to the patient's low ejection fraction of 20%, fluids will have to be monitored closely, patient's creatinine is stable #6 prostate cancer-patient has refused treatment in the past, I talked at length with his niece by phone today and he has seen Dr. Gibson in the past and has refused treatment for his prostate cancer. #7 chronic urinary retention-patient has a chronic Ramirez catheter #8 cystitis-patient will remain on antibiotics #9 anemia blood loss-expected from acute hip fracture, no need for transfusion at this time, will repeat CBC tomorrow Inpatient E&M: 62138 Subs Hosp L2
--- NOTE | 2020-04-26 13:28 | CASEMGMT ---
Social Work Return call from Erin in TCU and they are able to accept pt. Precert to be started. SW met with pt and informed of this and pt is agreeable to discharge to TCU when insurance authorizes. Plan: TCU, pending insurance SUZY Gagnon
--- NOTE | 2020-04-26 15:02 | PCM.PN.CARD ---
Subjectve: The patient was evaluated earlier this day. He was awake and alert. He denied any ongoing concerning chest discomfort or difficulty breathing. He does state he lives alone and he believes in the body naturally healing itself and does not like to take medications and thus does not do so. Objective: Vital Signs Temp Pulse Resp BP Pulse Ox 98.6 F 80 21 H 110/49 L 98 04/26/20 12:00 04/26/20 14:00 04/26/20 14:00 04/26/20 14:00 04/26/20 14:00 Oxygen Delivery Method Room Air Weight: 165 lb 5.547 oz Body Mass Index (BMI) 22.0 Intake and Output for Last 24 Hours 04/24/20 04/25/20 04/26/20 23:59 23:59 23:59 Intake Total 100 / 100 2477.50 / 2727.50 1347.5 / 1347.5 Output Total 350 / 350 1000 / 1150 650 / 650 Balance -250 / -250 1477.50 / 1577.50 697.5 / 697.5 General: Awake, Cooperative, No Acute Distress HEENT: Atraumatic, Normocephalic, PERRL, EOMI, Sclera Non Icteric Neck: No JVD Lungs: Clear to auscultation Cardiovascular: Regular Rhythm, Normal S1, Normal S2 Murmur Murmur: Grade 2/6, Mid Systolic, LLSB, LVOT, Sternal Notch Abdomen: Bowel Sounds Present, Soft Extremities: No edema 04/26/20 03:30: WBC 10.3, RBC 2.81 L, Hgb 10.2 L, Hct 30.8 L, MCV 109.6 H, MCH 36.3 H, MCHC 33.1, Plt Count 172, MPV 9.0 04/26/20 03:30: Sodium 140, Potassium 3.8, Chloride 111 H, Carbon Dioxide 24.0, Anion Gap 5, BUN 40 H, Creatinine 1.01, Est GFR (MDRD) Af Amer 90, Est GFR (MDRD) Non-Af 75, BUN/Creatinine Ratio 39.6 H, Glucose 118 H, Calcium 8.1 L Rhythm: Sinus rhythm: PVCs EKG: Sinus rhythm; left axis deviation; ST/T wave abnormality: Consider myocardial ischemia-lateral ECHO: Interpretation Summary The study was technically difficult. Moderately dilated left ventricle. Severe segmental systolic dysfunction (see wall motion). The estimated ejection fraction is 20 %. The left atrium is moderately enlarged. Mild (1+) mitral valve insufficiency. Trivial tricuspid valve insufficiency. Mild focal aortic valve thickening. Mild focal aortic valve calcification. Right ventricular systolic pressure estimated to be 48 mmHg. There is evidence of diastolic dysfunction. Medical Necessity - Tobacco Use Smoking Status: Never smoker Tobacco Use: Non-smoker Assessment/Plan 1. Non-ST segment elevation NV The patient has abnormal cardiac enzymes/troponin I levels at the outside institution as well as at this institution compatible with a non-ST segment elevation NV. It is unclear at this time as to whether or not this may have been a primary acute coronary syndrome event versus a secondary event to supply demand mismatch brought out by his other medical conditions and/or contribution from his findings compatible with rhabdomyolysis. At the present time he is being monitored. His cardiac enzymes have been followed as well as his ECG. An echocardiogram has been completed. The findings are as noted. He can be treated medically as deemed appropriate with agent such as aspirin, antiplatelet/anticoagulants, nitrates, beta-blockers, lipid-lowering agents, etc. Ideally he would be considered for further evaluation in the cardiac catheterization laboratory once he is improved from his other multiple medical conditions including concerns of his rhabdomyolysis and any impact on his renal function. However, at this time, he does not state that he wants to proceed in such a manner and states that he does not believe in taking medications. Thus it would be difficult to proceed with diagnostic cardiac catheterization and if need be revascularization therapy noting the patient does not believe in taking medical therapy which without such could be detrimental to him especially with her revascularization procedure. At the present time he is going to continue conservative medical management. 2. Cardiac murmur He does have a cardiac murmur. His echocardiogram is as noted. 3. Rhabdomyolysis Based upon his history and findings he does have a clinical situation compatible with rhabdomyolysis. He will need further evaluation care as deemed appropriate with notation of monitoring his renal function. 4. Left hip fracture He is now status post left hip ORIF with no obvious adverse cardiovascular events. 5. Hypertension His blood pressure will be monitored and his medications can be adjusted as deemed appropriate. 6. Hypothyroidism This may be a new diagnosis for him. He will need evaluation care per internal medicine. 7. Elevated PSA The patient has an elevated PSA. This raised concerns of prostate carcinoma. This could raise concerns of metastatic disease. This could raise concern as to whether or not he has a pathologic fracture. He will need further evaluation care per internal medicine as well as other subspecialties as needed. 8. UTI There is concern based upon the patient's findings he may have a UTI. He is undergoing evaluation care per internal medicine for this. Comment: The patient's case has been previously discussed and reviewed with the patient as well as Dr. Webster. This note was generated using a voice recognition system and there may be incorrect words, spelling or punctuation that were not noted when reviewing the office note prior to saving.
--- NOTE | 2020-04-26 15:13 | NURSING ---
REPORT CALLED TO PCU FOR TRANSFER TO ROOM 113, transferred per chair with belongings
[2020-04-26] MEDS: Cephalexin 500 MG Capsule PO (20:58)
[2020-04-26] MEDS: Atorvastatin Calcium 10 MG Tablet PO (20:58)
[2020-04-27] VITALS (10 sets, daily range): BP systolic 105–125; BP diastolic 41–56; PULSE 73–91; RESP 15–18; TEMP 36.9–37.9; O2SAT 92–97
[2020-04-27] MEDS: 0.9% Normal Saline 1,000 ML 75 ML IV (05:11)
[2020-04-27] MEDS: Cephalexin 500 MG Capsule PO ×2 (05:12→15:14)
[2020-04-27] MEDS: Levothyroxine 25 MCG TABLET PO (05:12)
[2020-04-27 07:05] LABS: Hematocrit 25.5 % (40-54); Hemoglobin 8.4 g/dL (13.0-16.5); Mean Corp Hgb Conc 32.9 g/dL (32-36); Mean Corpuscular Hgb 35.4 pg (27.0-32.0); Mean Corpuscular Volume 107.6 fL (80-94); Mean Platelet Vol. 9.3 fl (6.2-12.0); Platelet Count 159 K/mm3 (150-450); RBC Distribution Width SD 50.7 fl (35.1-43.9); Red Blood Count 2.37 M/mm3 (4.6-6.2); White Blood Count 7.5 K/mm3 (4.4-11.0)
[2020-04-27 07:33] LABS: Anion Gap 4 (5-15); BUN 30 mg/dL (7-18); BUN/Creat Ratio 37.7 RATIO (10-20); Calcium,Total 7.5 mg/dL (8.5-10.1); Chloride 112 mmol/L (98-107); EST Glomerular Filtration Rate 98 mL/min (>60); Est Glom Filt Rate - Afr Amer 119 mL/min (>60); Glucose 137 mg/dL (74-106); Potassium 3.3 mmol/L (3.5-5.1); Sodium Level 140 mmol/L (136-145)
[2020-04-27] MEDS: Tamsulosin HCl 0.4 MG Capsule PO (08:55)
[2020-04-27] MEDS: Famotidine 20 MG Tablet PO (08:55)
[2020-04-27] MEDS: Metoprolol(XL)Succ 25 MG Tablet PO (08:55)
[2020-04-27] MEDS: Aspirin 81 MG TAB.CHEW PO (08:55)
[2020-04-27] MEDS: Acetaminophen 325 MG Tablet 650 MG PO (09:05)
--- NOTE | 2020-04-27 11:17 | CASEMGMT ---
Patient was approved to go to TCU. SW notified physician. Patient will go today after he gets packed red blood cells. Barbi VAN MSW
--- NOTE | 2020-04-27 14:01 | PN.CARD_ITS ---
Subjectve: The patient appeared to be resting comfortably earlier this day. He had no concerns of ongoing chest discomfort or obvious respiratory related issues. He has been on room air. Objective: Vital Signs Temp Pulse Resp BP Pulse Ox 98.4 F 77 16 110/48 L 92 04/27/20 12:11 04/27/20 12:11 04/27/20 12:11 04/27/20 12:11 04/27/20 12:11 Oxygen Delivery Method Room Air Weight: 169 lb 5.04 oz Body Mass Index (BMI) 22.0 Intake and Output for Last 24 Hours 04/25/20 04/26/20 04/27/20 23:59 23:59 23:59 Intake Total 2477.50 / 2727.50 2287.5 / 2287.5 2155.75 / 2155.75 Output Total 1000 / 1150 1000 / 1000 550 / 550 Balance 1477.50 / 1577.50 1287.5 / 1287.5 1605.75 / 1605.75 General: Awake, Cooperative, No Acute Distress HEENT: Atraumatic, Normocephalic, PERRL, EOMI, Sclera Non Icteric Neck: Supple, Good ROM, No JVD Lungs: Clear to auscultation Cardiovascular: Regular Rhythm, Premature Ectopic Beats, Normal S1, Normal S2 Murmur Murmur: Grade 2/6, Mid Systolic, LLSB, LVOT, Sternal Notch Abdomen: Bowel Sounds Present, Soft Extremities: No edema Psych/Mental Status: Appropriate 04/27/20 06:10: WBC 7.5, RBC 2.37 L, Hgb 8.4 L, Hct 25.5 L, MCV 107.6 H, MCH 35.4 H, MCHC 32.9, Plt Count 159, MPV 9.3 04/27/20 06:10: Sodium 140, Potassium 3.3 L, Chloride 112 H, Carbon Dioxide 24.0, Anion Gap 4 L, BUN 30 H, Creatinine 0.80, Est GFR (MDRD) Af Amer 119, Est GFR (MDRD) Non-Af 98, BUN/Creatinine Ratio 37.7 H, Glucose 137 H, Calcium 7.5 L Rhythm: Sinus rhythm; PVCs Medical Necessity - Tobacco Use Smoking Status: Never smoker Tobacco Use: Non-smoker Assessment/Plan 1. Non-ST segment elevation IN The patient has abnormal cardiac enzymes/troponin I levels at the outside institution as well as at this institution compatible with a non-ST segment elevation IN. It is unclear at this time as to whether or not this may have been a primary acute coronary syndrome event versus a secondary event to supply demand mismatch brought out by his other medical conditions and/or contribution from his findings compatible with rhabdomyolysis. At the present time he is being monitored. His cardiac enzymes have been followed as well as his ECG. An echocardiogram has been completed. The findin gs are as noted. He can be treated medically as deemed appropriate with agent such as aspirin, antiplatelet/anticoagulants, nitrates, beta-blockers, lipid-lowering agents, etc. Ideally he would be considered for further evaluation in the cardiac catheterization laboratory once he is improved from his other multiple medical conditions including concerns of his rhabdomyolysis and any impact on his renal function. However, at this time, he does not state that he wants to proceed in such a manner and states that he does not believe in taking medications. Thus it would be difficult to proceed with diagnostic cardiac catheterization and if need be revascularization therapy noting the patient does not believe in taking medical therapy which without such could be detrimental to him especially with her revascularization procedure. At the present time he is going to continue conservative medical management. Consideration was given to the addition of antiplatelet therapy with clopidogrel/Plavix as part of his medical management for period of time. However based upon his drop in hemoglobin levels this is placed on hold. 2. Cardiac murmur He does have a cardiac murmur. His echocardiogram is as noted. 3. Rhabdomyolysis Based upon his history and findings he does have a clinical situation compatible with rhabdomyolysis. He will need further evaluation care as deemed appropriate with notation of monitoring his renal function. 4. Left hip fracture He is now status post left hip ORIF with no obvious adverse cardiovascular events. 5. Hypertension His blood pressure will be monitored and his medications can be adjusted as deemed appropriate. 6. Hypothyroidism This may be a new diagnosis for him. He will need evaluation care per internal medicine. 7. Elevated PSA The patient has an elevated PSA. This raised concerns of prostate carcinoma. This could raise concerns of metastatic disease. This could raise concern as to whether or not he has a pathologic fracture. He will need further evaluation care per internal medicine as well as other subspecialties as needed. 8. UTI There is concern based upon the patient's findings he may have a UTI. He is undergoing evaluation care per internal medicine for this. 9. Anemia His hemoglobin has dropped. This may be secondary to his recent surgical procedure. This was discussed with the [facility] staff. He will be receiving PRBCs to assist with his oxygen carrying capacity based upon his underlying cardiovascular concerns. Will need to be monitored for any obvious evidence of volume overload with this procedure. Otherwise, the present time, the patient is going to continue conservative cardiovascular medical therapy. Comment: The patient's case has been previously discussed and reviewed with the patient as well as Dr. Webster. This note was generated using a voice recognition system and there may be incorrect words, spelling or punctuation that were not noted when reviewing the office note prior to saving.
--- NOTE | 2020-04-27 15:55 | PCM.TXEXTCAR ---
- Diet 04/26/20 07:55 Diet: Cardiac - Heart Healthy Is pt able to select menu?: No Diet Comments: please send easily chewable food d/t dentures uneven - Routine Orders/Code Status Code Status: DNRCC-A - no intubation - Wound(s) lt hip Wound Type: Surgical Incision coccyx Wound Type: Pressure Injury - Therapies Weight Bearing: Weight bearing as tolerated Physical Therapy: Eval and Treat Occupational Therapy: Eval and Treat - Allergies/Procedures Done in Hospital Allergies/Adverse Reactions: Allergies No Known Allergies Allergy (Verified 04/24/20 22:26) Procedures: - - left posterior hip hemiarthroplasty 04/25/20 - Type of Care/Length of Stay Estimated LOS: Convalescent Care Less Than 30 days Type of Care Needed: Skilled Rehab Potential: Good Prognosis: Good - Additional Orders/Day of Discharge Additional Orders: POSTERIOR HIP DISLOCATION PRECAUTIONS FOR [address] APPOINTMENT TO SEE DR GAO IN 2 WEEKS. CHANGE DRESSING IN SEVEN DAYS H&P will serve as current which was dated: 04/24/20 Day of Discharge: 04/27/20 - Dietary and Speech Recommendations Dietitian Recommendations/Changes: Continue cardiac diet as tolerated. Will change ONS to Ensure Enlive 120ml 4x/day. - Follow Up Care Primary Care Physician: Care Physician,No Primary [Primary Care Provider] - Please Follow Up With: Dr. Gao When: 2 WEEKS
--- NOTE | 2020-04-27 16:57 | NURSING ---
report called to tcu
--- NOTE | 2020-04-28 16:48 | PCM.DC.SUM ---
Discharge Date and Diagnosis - Problem List Patient Problems: Active and Suspected Problems NSTEMI (non-ST elevated myocardial infarction) (Acute) Rhabdomyolysis (Acute) Closed left hip fracture (Acute) Prostate cancer (Suspected) Murmur, cardiac (Acute) UTI (urinary tract infection) (Acute) Date of Admission: 04/24/20 Date of Discharge: 04/27/20 - Primary Discharge Diagnosis Acute Problems: Active Problems #1 transcervical left hip fracture-postop day #2 non-STEMI #3 hypothyroidism #4 cardiomyopathy-probably ischemic in nature #5 rhabdomyolysis #6 prostate cancer #7 chronic urinary retention #8 cystitis-related to chronic Ramirez catheter usage #9 anemia blood loss-expected from acute hip fracture, requiring blood transfusion #10 noncompliance with medical regimen Suspected Problems: Suspected Problems Prostate cancer (Suspected) - Secondary Discharge Diagnosis Chronic Problems: Chronic Problems Elevated PSA (Chronic) BPH (benign prostatic hyperplasia) (Chronic) HTN (hypertension) (Chronic) Hypothyroidism (Chronic) Urinary retention (Chronic) Venous stasis (Chronic) Chronic systolic congestive heart failure (Chronic) Hospital Course and Treatment Operations: - - Hemiarthroplasty left hip Procedures: 2-D Echocardiogram, Blood transfusion Summary of Care Provided: The patient is a 84 year old M was seen in the emergency room at [facility] after being brought in by squad after being found down at his home for an unknown length of time. Patient is noncompliant with taking medications or keeping his physician office visits. Work-up in the emergency room showed the patient have a transcervical left hip fracture, he also had elevated CPK indicating rhabdomyolysis, and finally patient's cardiac enzymes were elevated without noted ischemic changes on his EKG indicating a non-STEMI. Labs also showed the patient to be hypothyroid. Patient was seen in consultation by cardiology and orthopedic surgery after being admitted to PCU, he was deemed to be high risk for surgical intervention, patient consented to surgery however and he underwent a left hip hemiarthroplasty. Patient was transferred to ICU overnight after the hemiarthroplasty but had no significant complications. Patient's echocardiogram showed a significantly reduced ejection fraction of 20% but due to the patient's medical condition, he was not deemed stable for interventional testing. Patient was placed on medication at the direction of cardiology. Patient did well during his hospital stay, he was given 1 unit of blood due to expected blood loss from his left hip fracture. It was recommended that the patient go into short-term rehab at a residential facility for rehab services. He consented. On 04/27/2020 patient was seen and examined: On examination he appeared in good health and spirits. Vital signs as documented. Skin warm and dry and without overt rashes. Neck without JVD, neck was supple, trachea midline, thyroid was normal. Lungs clear bilaterally, normal air movement was noted. Heart exam notable for regular rhythm, normal sounds and absence of murmurs, rubs or gallops. Abdomen unremarkable and without evidence of organomegaly, masses, or abdominal aortic enlargement. Bowel sounds are present, abdomen is not distended. Extremities nonedematous, no cyanosis was noted, no clubbing was noted. Neuro: Cranial nerves II through XII are grossly intact, no focal motor deficits were noted, sensation to light touch and pinprick intact, motor exam 5/5 throughout. Psych: Patient is alert and oriented x3, he does not appear anxious or depressed, he does not appear agitated. Patient was discharged to TCU on 04/27/2020 in stable condition Patient Problems: Active and Suspected Problems NSTEMI (non-ST elevated myocardial infarction) (Acute) Rhabdomyolysis (Acute) Closed left hip fracture (Acute) Prostate cancer (Suspected) Murmur, cardiac (Acute) UTI (urinary tract infection) (Acute) - Physical Exam Vitals/I&O's: Vital Signs Temp Pulse Resp BP Pulse Ox 99 F 73 16 106/51 L 95 04/27/20 15:09 04/27/20 15:50 04/27/20 15:09 04/27/20 15:09 04/27/20 15:09 Oxygen Delivery Method Room Air Weight: 76.8 kg Body Mass Index (BMI) 22.0 Intake and Output for Last 24 Hours 04/26/20 04/27/20 04/28/20 23:59 23:59 23:59 Intake Total 2287.5 / 2287.5 2155.75 / 2155.75 Output Total 1000 / 1000 550 / 550 Balance 1287.5 / 1287.5 1605.75 / 1605.75 Microbiology Past 72 Hours 04/25/20 00:45 Urine Catheter - Ramirez Urine Culture - Final Klebsiella pneumoniae sp pneum Home Medications: Medications to take at Discharge Levothyroxine [Synthroid] 25 mcg PO DAILY 04/24/20 Metoprolol(XL)Succ [Toprol Xl (Beta Mynor)] 25 mg PO DAILY 04/24/20 Tamsulosin HCl [Flomax] 0.4 mg PO DAILY 04/24/20 Aspirin [Aspirin, Baby] 81 mg PO DAILY@0800 04/27/20 Atorvastatin Calcium [Lipitor] 10 mg PO QHS 04/27/20 Cephalexin [Keflex] 500 mg PO Q8 04/27/20 Enoxaparin Sodium [Lovenox] 40 mg SQ DAILY 04/27/20 Lisinopril [Zestril] 5 mg PO DAILY 04/27/20 Oxycodone [Oxyir] 5 mg PO Q4H PRN PRN 5 Days #10 tab 04/27/20 Senna/Docusate Sodium [Senokot-S] 2 tab PO BID PRN PRN tab 04/27/20 Following Prescriptions Were Given to Patient: Oxycodone [Oxyir] 5 mg PO Q4H PRN PRN 5 Days #10 tab PRN Reason: Pain Score 4-5 Prescription Printed Primary Care Physician: Care Physician,No Primary [Primary Care Provider] - Please Follow Up With: Dr. Gao When: 2 WEEKS Disposition: Home Minutes spent on discharge:: 332 Patient Condition:: Stable Medical Necessity - Tobacco Use Smoking Status: Never smoker Tobacco Use: Non-smoker Meaningful Use Info Meaningful Use Diagnoses (Choose all that apply): AMI - AMI/Post PCI/Angioplasty Aspirin given w/in 24hrs of arrival?: Yes ASA at discharge?: Yes Antiplatelet Therapy at Discharge:: Yes Statins at discharge?: Yes He/ARB at discharge?: Yes Beta Mynor at discharge?: Yes Done w/ Acute NC measure.: Yes Documented LVEF (%): 20 Inpatient E&M: [id number] Disch Hosp
--- NOTE | 2020-04-30 13:06 | CASEMGMT ---
Social Work Received call from Mikayla at [facility] ([phone]) stating the agency had received phone call of patient's condition at home, prior to hospital presentation. APS wanting to provide contact information to hospital social service technician in case patient does discharge back home. Received call from Olya at [facility] inquiring on status of patient. This internal communications writer returned call and notified to patient's admission to TCU. Provided contact number for TCU SW. Handoff report to ANU Sexton, for [facility]. -AKBAR Solano, KOHINOOR OPERATOR
== END 2020-04-27 16:40 | disposition skilled nursing facility (03) | DRG 956 ==
LOC: PCU 04-25 11:43 → ICU 04-25 14:37 → PCU 04-26 15:56
PROVIDERS: Specialist; Admitting Provider Family Medicine; Visit Provider Internal Medicine
PROC: 0SRB0JZ Replacement of Left Hip Joint with Synthetic Substitute, Open Approach (ICD-10-PCS; CPT 27130; principal; 2020-04-25 13:50)
DX: S72.032A Displaced midcervical fracture of left femur, initial encounter for closed fracture (principal); T79.6XXA Traumatic ischemia of muscle, initial encounter; I21.4 Non-ST elevation (NSTEMI) myocardial infarction; D62 Acute posthemorrhagic anemia; I50.22 Chronic systolic (congestive) heart failure; I11.0 Hypertensive heart disease with heart failure; N30.90 Cystitis, unspecified without hematuria; C61 Malignant neoplasm of prostate; E03.9 Hypothyroidism, unspecified; R33.8 Other retention of urine; W18.30XA Fall on same level, unspecified, initial encounter; N40.1 Benign prostatic hyperplasia with lower urinary tract symptoms; R01.1 Cardiac murmur, unspecified; R97.20 Elevated prostate specific antigen [PSA]; K21.9 Gastro-esophageal reflux disease without esophagitis; I25.5 Ischemic cardiomyopathy; I87.8 Other specified disorders of veins; Z66 Do not resuscitate; Z79.82 Long term (current) use of aspirin; Z79.890 Hormone replacement therapy; Z85.46 Personal history of malignant neoplasm of prostate; Z91.14 Patient's other noncompliance with medication regimen
CPT/HCPCS: 36415; 71045; 73502; 80048; 80053; 80061; 81001; 82550; 83735; 84153; 84439; 84443; 84484; 85025; 85027; 85610; 85730; 86850; 86900; 86901; 86920; 87077; 87086; 87088; 87186; 87426; 88305; 88311; 88341; 88342; 93005; 93306; 94762; 97110; 97116; 97162; 97166; 97530; 97535; 97803; 99251; C1776; J7030; J7040; P9016; Q9957; A4216; G0463; J0696; J2405

== ENCOUNTER 2020-04-27 16:52 | Inpatient (IN) | payer MEDICARE, SELFPAY ==
[2020-04-25 05:35] VITALS: BMI 22.0
[2020-04-27 17:01] VITALS: BP 110/57; PULSE 71; RESP 16; TEMP 36.6; O2SAT 98
[2020-04-27 17:47] VITALS: BMI 24.0
[2020-04-27 17:52] VITALS: BMI 24.1
--- NOTE | 2020-04-27 18:02 | NURSING ---
R' HAS [facility] ON ADMIT WITH $216, VISA CARD AND SS CARD. OFFERED TO LOCK UP IN HOSPITAL SAFE BUT REFUSED. WANTS IT LOCKED IN MED BOX. LOCKED IN MED BOX AT THIS TIME.
--- NOTE | 2020-04-27 18:15 | HP.PCM_ITS ---
Problem List (1) Debility Status: Acute (2) Fall Status: Acute (3) Pathologic hip fracture Status: Acute (4) Urinary retention Status: Chronic (5) Venous stasis Status: Chronic (6) Chronic systolic congestive heart failure Status: Chronic (7) NSTEMI (non-ST elevated myocardial infarction) Status: Acute (8) Rhabdomyolysis Status: Acute Qualifiers: (9) Closed left hip fracture Status: Acute Qualifiers: (10) Elevated PSA Status: Chronic (11) BPH (benign prostatic hyperplasia) Status: Chronic Qualifiers: (12) HTN (hypertension) Status: Chronic Qualifiers: (13) Hypothyroidism Status: Chronic Qualifiers: (14) Prostate cancer Status: Suspected (15) UTI (urinary tract infection) Status: Acute History of Present Illness Date of Admission: 04/27/20 Chief Complaint: Here for rehabilitation, strengthening, prior to discharge home alone. 04/24/20 The patient is a 84 year old Male with below past medical history directly admitted to [facility] from [facility]. Patient suffered a fall, NSTEMI, rhabdomyolysis, left hip fracture. 04/24/20 Echo moderately dilated left ventricle. Severe segmental systolic dysfunction. EF 20%. Right Ventricular systolic pressure 48mm HG. Diastolic dysfunction. 04/24/20 EKG sinus rhythm with premature atrial contractions. Left [place] Deviation. ST&T wave abnormality, consider lateral ischemia. Prepare for surgery, consult Cardiology for NSTEMI. IV Fluids for Rhabdomyolysis. Patient reluctant to treat prostate cancer. 04/25/20 Chest X-ray negative. 04/25/20 Orthopedics performed left posterior hip hemiarthroplasty, femoral biopsy. 04/26/20 Tylenol, Oxycodone for pain. Consider Xarelto for DVT prophylaxis. 04/26/20 PT/OT for [facility]. Monitor fluids due to EF 20%. Patient refuses treatment of prostate cancer. 04/26/20 Patient declined heart catheterization, does not like taking medications. Medical management of CAD, NSTEMI. K. Pneumoniae UTI treated with Rocephin IV, Keflex PO. Transfused 1 unit PRBC for anemia. 04/27/20 Admit to TCU with debility, here for rehabilitation, strengthening, prior to discharge home alone. Past Medical History Past Medical History (Chronic Problems): Chronic Problems Elevated PSA (Chronic) BPH (benign prostatic hyperplasia) (Chronic) HTN (hypertension) (Chronic) Hypothyroidism (Chronic) Urinary retention (Chronic) Venous stasis (Chronic) Chronic systolic congestive heart failure (Chronic) Allergies No Known Allergies Allergy (Verified 04/24/20 22:26) Home Medications: Ambulatory Orders Medication Instructions Recorded Levothyroxine [Synthroid] 25 mcg PO DAILY 04/24/20 Metoprolol(XL)Succ [Toprol Xl 25 mg PO DAILY 04/24/20 (Beta Mynor)] Tamsulosin HCl [Flomax] 0.4 mg PO DAILY 04/24/20 Aspirin [Aspirin, Baby] 81 mg PO DAILY@0800 04/27/20 Atorvastatin Calcium [Lipitor] 10 mg PO QHS 04/27/20 Cephalexin [Keflex] 500 mg PO Q8 04/27/20 Enoxaparin Sodium [Lovenox] 40 mg SQ DAILY 04/27/20 Lisinopril [Zestril] 5 mg PO DAILY 04/27/20 Oxycodone [Oxyir] 5 mg PO Q4H PRN PRN 5 Days #10 tab 04/27/20 Senna/Docusate Sodium [Senokot-S] 2 tab PO BID PRN PRN tab 04/27/20 Surgical History: - - Patient notes left-sided temporal and scalp surgery secondary to incident as a youth. Psychiatric History: No pertinent psych hx Lives: Alone Smoking Status: Never smoker Tobacco Use: Non-smoker Alcohol: None Drugs: None - *Family History Maternal History Items: - - Patient denies any market maternal or paternal family history including heart disease, diabetes, cancer but notes I do not see a physician frequently and past and there mid to late 80s. Paternal History Items: - - Patient denies any market maternal or paternal family history including heart disease, diabetes, cancer but notes I do not see a physician frequently and past and there mid to late 80s. Review of Systems Constitutional: Denies: Chills, Fever, Weight Change HEENT: Denies: Head Aches, Sinus Congestion, Sinus Drainage Cardiovascular: Denies: Chest Pain, Palpitations Respiratory: Denies: Cough, Shortness of breath at rest, Sputum production Gastrointestinal: Denies: Abdominal Pain, Nausea, Vomiting Genitourinary: Denies: Dysuria Musculoskeletal: Denies: Joint Pain, Joint Tenderness Skin: Denies: Rash, Wounds Neurological: Denies: Numbness, Tingling, Focal weakness Psychiatric: Denies: Anxiety, Depression, Homicidal Ideations, Suicidal Ideations Hematologic/ Lymphatic: Denies: Easy Bruising, Easy Bleeding VTE Information - Inpt Only VTE Present on Admission: No VTE Mechan Device Prophylaxis: Knee High CECILIO Hose VTE Pharm Prophylaxis ordered?: Yes Patient Problems: Active and Suspected Problems NSTEMI (non-ST elevated myocardial infarction) (Acute) Rhabdomyolysis (Acute) Closed left hip fracture (Acute) Prostate cancer (Suspected) UTI (urinary tract infection) (Acute) Debility (Acute) Fall (Acute) Pathologic hip fracture (Acute) - Physical Exam Vitals/I&O's: Vital Signs Temp Pulse Resp BP Pulse Ox 97.8 F 71 16 110/57 L 98 04/27/20 17:01 04/27/20 17:01 04/27/20 17:01 04/27/20 17:01 04/27/20 17:01 Oxygen Delivery Method Room Air Weight: 78.4 kg Body Mass Index (BMI) 24.0 General: Alert, Oriented x3, Cooperative HEENT: Atraumatic, PERRLA, EOMI, Normocephalic Neck: Supple, No JVD, Negative Carotid Bruits Lungs: Clear to auscultation, Normal air movement Cardiovascular: Regular rate, No murmurs Abdomen: Bowel Sounds Present, Soft, Non Tender Extremities: No edema, Capillary Refill Less than 3 Seconds Skin: No rashes, No breakdown Musculoskeletal: No Tenderness to Palpation of Joints or Extremities Neurological: Cranial nerves II-XII grossly intact Psych/Mental Status: Normal Affect, Appropriate Current Medications Aspirin (Aspirin 81 Mg Tab.Chew) 81 mg PO DAILY@0800 [facility] Atorvastatin Calcium (Atorvastatin Calcium 10 Mg Tablet) 10 mg PO QHS [facility] Cephalexin (Cephalexin 500 Mg Capsule) 500 mg PO Q8 [facility] Enoxaparin Sodium (Enoxaparin 40 Mg/0.4 Ml Syringe) 40 mg SC DAILY [facility] Stop: 05/11/20 08:00 Levothyroxine Sodium (Levothyroxine 25 Mcg Tablet) 25 mcg PO DAILY [facility] Lisinopril (Lisinopril 5 Mg Tablet) 5 mg PO DAILY [facility] Metoprolol Succinate (Metoprolol(Xl)Succ 25 Mg Tablet) 25 mg PO DAILY [facility] Nutritional Formula (Lactose Free) (Ensure Enlive 120 Ml Liquid) 120 ml PO 4X/DAY JO Oxycodone HCl (Oxycodone 5 Mg Tablet) 5 mg PO Q4H PRN PRN PRN Reason: Pain Score 4-5 Senna/Docusate Sodium (Senna/Docusate Sodium 1 Tablet) 2 tablet PO BID PRN PRN PRN Reason: Constipation Sodium Chloride (0.9% Saline Lock 10 Ml Syringe) 10 - 40 ml IV UD PRN PRN Reason: SALINE FLUSH Tamsulosin HCl (Tamsulosin Hcl 0.4 Mg Capsule) 0.4 mg PO DAILY JO Tuberculin PPD (Tuberculin,Purif.Prot.Deriv. 50 Tu/Ml Vial) 5 tu ID X1 ONE Stop: 04/28/20 10:01 Tuberculin PPD (Tuberculin,Purif.Prot.Deriv. 50 Tu/Ml Vial) 5 tu ID X1 ONE Stop: 05/05/20 10:01 Assessment/Plan All Active Problems NSTEMI (non-ST elevated myocardial infarction) (Acute) Rhabdomyolysis (Acute) Closed left hip fracture (Acute) Murmur, cardiac (Acute) UTI (urinary tract infection) (Acute) Debility (Acute) Fall (Acute) Pathologic hip fracture (Acute) 84 year old male with below past medical history hospitalized for left hip fracture, complicated by NSTEMI, rhabdomyolysis, urinary tract infection, anemia requiring transfusion, untreated prostate cancer, admitted to TCU with debility, here for rehabilitation, strengthening, prior to discharge home alone. * Debility - PT/OT. * Pain - Tylenol 1000MG Q6H PRN pain (1-3), Oxycodone 5MG Q4H PRN pain (4-10). * Bowel - Senna/colace 2 tablets BID PRN. * Adult immunization - Administer Prevnar 13, Pneumovax 23, Fluzone as appropriate. * DVT prophylaxis - Lovenox 40MG SC daily. * Coronary Artery Disease - Metoprolol succinate 25MG daily, Lisinopril 5MG daily, Aspirin 81MG daily. * Hyperlipidemia - Atorvastatin 10MG QHS. * UTI - Keflex 500MG Q8H thru 05/04/20. * Nutrition - Ensure 120ML 4x/day. * Hypothyroidism - Levothyroxine 25MCG daily. * BPH - Tamsulosin 0.4MG daily.
[2020-04-27] MEDS: Atorvastatin Calcium 10 MG Tablet PO (19:54)
[2020-04-27] MEDS: Cephalexin 500 MG Capsule PO (19:54)
--- NOTE | 2020-04-27 20:47 | PCA ---
patient did not wish to get washed up tonight.
[2020-04-28 05:24] VITALS: BP 116/51; PULSE 65; RESP 16; TEMP 36.8; O2SAT 94
[2020-04-28] MEDS: Enoxaparin 40 MG/0.4 ML Syringe SC (05:30)
[2020-04-28 05:31] VITALS: BP 116/51; PULSE 65
[2020-04-28] MEDS: Metoprolol(XL)Succ 25 MG Tablet PO (05:31)
[2020-04-28] MEDS: Cephalexin 500 MG Capsule PO ×3 (05:31→20:58)
[2020-04-28] MEDS: Levothyroxine 25 MCG TABLET PO (05:31)
[2020-04-28] MEDS: Lisinopril 5 MG Tablet PO (05:31)
[2020-04-28] MEDS: Tamsulosin HCl 0.4 MG Capsule PO (05:32)
[2020-04-28] MEDS: oxyCODONE 5 MG Tablet PO ×2 (05:34→20:57)
[2020-04-28] MEDS: Aspirin 81 MG TAB.CHEW PO (07:53)
[2020-04-28] MEDS: 0.9% Saline Lock 10 ML Syringe IV (07:55)
[2020-04-28 09:05] LABS: Absolute Lymphocyte Count 1.18 X10^3/uL (0.83-4.51); Absolute Neutrophil Count 5.6 X10^3/uL (2.0-7.7); Basophil# 0.02 X10^3/uL; Basophil% 0.3 % (0-1); Eosinophil# 0.48 X10^3/uL; Eosinophils% 6.1 % (0-5); Hematocrit 30.4 % (40-54); Hemoglobin 10.1 g/dL (13.0-16.5); Lymphocyte # 1.18 X10^3/ul (4.0); Lymphocyte % 14.9 % (19-41); Mean Corp Hgb Conc 33.2 g/dL (32-36); Mean Corpuscular Hgb 35.4 pg (27.0-32.0); Mean Corpuscular Volume 106.7 fL (80-94); Mean Platelet Vol. 9.4 fl (6.2-12.0); Monocyte# 0.57 X10^3/uL; Monocyte% 7.2 % (0-10); NRBC Flagged by Analyzer 0 % (0-5); Neutrophil # 5.62 X10^3/uL (2.7-7.7); Neutrophil % 70.9 % (47-70); Platelet Count 178 K/mm3 (150-450); RBC Distribution Width CV 14.8 % (11.6-14.6); RBC Distribution Width SD 58.5 fl (35.1-43.9); Red Blood Count 2.85 M/mm3 (4.6-6.2); White Blood Count 7.9 K/mm3 (4.4-11.0)
[2020-04-28 09:16] LABS: Anion Gap 4 (5-15); BUN 27 mg/dL (7-18); Chloride 112 mmol/L (98-107); Creatinine, Serum 0.82 mg/dL (0.70-1.30); EST Glomerular Filtration Rate 95 mL/min (>60); Est Glom Filt Rate - Afr Amer 115 mL/min (>60); Estimated Creatinine Clearance 70.15 ml/min; Glucose 137 mg/dL (74-106); Potassium 3.7 mmol/L (3.5-5.1); Sodium Level 141 mmol/L (136-145)
[2020-04-28] MEDS: Tuberculin,Purif.prot.deriv. 50 TU/ML Vial 5 ML ID (11:22)
[2020-04-28 14:21] VITALS: BP 125/64; PULSE 73; RESP 18; TEMP 36.7; O2SAT 96
[2020-04-28] MEDS: Atorvastatin Calcium 10 MG Tablet PO (20:58)
--- NOTE | 2020-04-28 23:36 | NURSING ---
P repositioned to off load pressure to coccyx, educated about need to reposition every 2 hours
[2020-04-29 05:39] VITALS: BP 119/64; PULSE 73; RESP 16; TEMP 36.8; O2SAT 97
[2020-04-29 05:41] VITALS: BP 119/64; PULSE 73
[2020-04-29] MEDS: Lisinopril 5 MG Tablet PO (05:41)
[2020-04-29] MEDS: Enoxaparin 40 MG/0.4 ML Syringe SC (05:41)
[2020-04-29] MEDS: Metoprolol(XL)Succ 25 MG Tablet PO (05:41)
[2020-04-29] MEDS: Cephalexin 500 MG Capsule PO ×3 (05:41→19:45)
[2020-04-29] MEDS: Levothyroxine 25 MCG TABLET PO (05:41)
[2020-04-29] MEDS: Tamsulosin HCl 0.4 MG Capsule PO (05:42)
[2020-04-29] MEDS: Aspirin 81 MG TAB.CHEW PO (07:40)
[2020-04-29 07:46] VITALS: PULSE 68; RESP 16; O2SAT 96
[2020-04-29] MEDS: Acetaminophen 500 MG Tablet 1000 MG PO (11:30)
[2020-04-29 14:16] VITALS: BP 114/51; PULSE 65; RESP 20; TEMP 36.6; O2SAT 91
[2020-04-29] MEDS: oxyCODONE 5 MG Tablet PO ×2 (14:29→19:47)
[2020-04-29] MEDS: Atorvastatin Calcium 10 MG Tablet PO (19:45)
[2020-04-30 05:26] VITALS: BP 120/64; PULSE 64; RESP 15; TEMP 37.1; O2SAT 94
[2020-04-30] MEDS: Enoxaparin 40 MG/0.4 ML Syringe SC (05:33)
[2020-04-30 05:34] VITALS: BP 120/64; PULSE 64
[2020-04-30] MEDS: Cephalexin 500 MG Capsule PO ×3 (05:34→20:47)
[2020-04-30] MEDS: Nystatin Powder 15gm Bottle 1 APPLIC TOPICAL ×2 (05:34→20:53)
[2020-04-30] MEDS: Metoprolol(XL)Succ 25 MG Tablet PO (05:34)
[2020-04-30] MEDS: Lisinopril 5 MG Tablet PO (05:34)
[2020-04-30] MEDS: Levothyroxine 25 MCG TABLET PO (05:34)
[2020-04-30] MEDS: Tamsulosin HCl 0.4 MG Capsule PO (05:34)
[2020-04-30] MEDS: Acetaminophen 500 MG Tablet 1000 MG PO (05:35)
[2020-04-30] MEDS: 0.9% Saline Lock 10 ML Syringe IV ×2 (05:36→15:35)
--- NOTE | 2020-04-30 07:21 | NURSING ---
CONT TO REFUSE TO LIE ON SIDES , WHEN REPOSITIONED BY STAFF, REPOSISITONS SELF TO BACK , CONT TO EDUCATE ABOUT NEED TO TURN AND REPOSITION AT LEAST EVERY 2 HOURS
[2020-04-30] MEDS: Aspirin 81 MG TAB.CHEW PO (07:53)
--- NOTE | 2020-04-30 11:39 | NURSING ---
Spoke with Dr. Gao's clinical assist. Emani are to remain in place until F/U on 05/10.
[2020-04-30 13:44] VITALS: BP 118/60; PULSE 67; RESP 16; TEMP 36; O2SAT 95
--- NOTE | 2020-04-30 13:59 | PHA.CONS_ITS ---
<ElifserenityEssence M - Last Filed: 04/30/20 13:59> Progress Note - Pharmacy Subjective: TCU ADMISSION Objective: Allergies No Known Allergies Allergy (Verified 04/24/20 22:26) Current Medications Generic Name Dose Route Start Last Admin Trade Name Freq PRN Reason Stop Dose Admin Acetaminophen 1,000 mg 04/27/20 18:35 04/30/20 05:35 Acetaminophen 500 Mg Tablet PO 1,000 mg Q6H PRN PRN Administration Pain Score 1-3 Aspirin 81 mg 04/28/20 08:00 04/30/20 07:53 Aspirin 81 Mg Tab.Chew PO 81 mg DAILY@0800 JO Administration Atorvastatin Calcium 10 mg 04/27/20 22:00 04/29/20 19:45 Atorvastatin Calcium 10 Mg Tablet PO 10 mg QHS JO Administration Cephalexin 500 mg 04/27/20 22:00 04/30/20 05:34 Cephalexin 500 Mg Capsule PO 05/02/20 22:01 500 mg Q8 JO Administration Enoxaparin Sodium 40 mg 04/28/20 06:00 04/30/20 05:33 Enoxaparin 40 Mg/0.4 Ml Syringe SC 05/11/20 08:00 40 mg DAILY JO Administration Levothyroxine Sodium 25 mcg 04/28/20 06:00 04/30/20 05:34 Levothyroxine 25 Mcg Tablet PO 25 mcg DAILY JO Administration Lisinopril 5 mg 04/28/20 06:00 04/30/20 05:34 Lisinopril 5 Mg Tablet PO 5 mg DAILY JO Administration Metoprolol Succinate 25 mg 04/28/20 06:00 04/30/20 05:34 Metoprolol(Xl)Succ 25 Mg Tablet PO 25 mg DAILY JO Administration Nutritional Formula (Lactose Free) 120 ml 04/27/20 22:00 04/30/20 11:58 Ensure Enlive 120 Ml Liquid PO 120 ml 4X/DAY JO Administration Nystatin 1 applic 04/29/20 22:00 04/30/20 05:34 Nystatin Powder 15gm Bottle TOPICAL 1 applicatio 0600,2200 JO Administration Protocol Oxycodone HCl 5 mg 04/27/20 18:36 04/29/20 19:47 Oxycodone 5 Mg Tablet PO 5 mg Q4H PRN PRN Administration Pain Score 4-10 Senna/Docusate Sodium 2 tablet 04/27/20 17:12 Senna/Docusate Sodium 1 Tablet PO BID PRN PRN Constipation Sodium Chloride 10 - 40 ml 04/27/20 17:46 04/30/20 05:36 0.9% Saline Lock 10 Ml Syringe IV 10 ml UD PRN Administration SALINE FLUSH Tamsulosin HCl 0.4 mg 04/28/20 06:00 04/30/20 05:34 Tamsulosin Hcl 0.4 Mg Capsule PO 0.4 mg DAILY JO Administration Tuberculin PPD 5 tu 05/05/20 10:00 Tuberculin,Purif.Prot.Deriv. 50 Tu/Ml Vial ID 05/05/20 10:01 X1 ONE Problem List NSTEMI (non-ST elevated myocardial infarction) (Acute) Rhabdomyolysis (Acute) Closed left hip fracture (Acute) Elevated PSA (Chronic) BPH (benign prostatic hyperplasia) (Chronic) HTN (hypertension) (Chronic) Hypothyroidism (Chronic) Prostate cancer (Suspected) UTI (urinary tract infection) (Acute) Debility (Acute) Fall (Acute) Pathologic hip fracture (Acute) Urinary retention (Chronic) Venous stasis (Chronic) Chronic systolic congestive heart failure (Chronic) Vital Signs Temp Pulse Resp BP Pulse Ox 96.8 F L 67 16 118/60 95 04/30/20 13:44 04/30/20 13:44 04/30/20 13:44 04/30/20 13:44 04/30/20 13:44 Oxygen Delivery Method Room Air Weight: 78.4 kg Body Mass Index (BMI) 24.0 Sodium 141 mmol/L (136-145) 04/28/20 08:20 Potassium 3.7 mmol/L (3.5-5.1) 04/28/20 08:20 Chloride 112 mmol/L (98-107) H 04/28/20 08:20 Carbon Dioxide 25.0 mmol/L (21.0-32.0) 04/28/20 08:20 Anion Gap 4 (5-15) L 04/28/20 08:20 BUN 27 mg/dL (7-18) H 04/28/20 08:20 Creatinine 0.82 mg/dL (0.70-1.30) 04/28/20 08:20 Est GFR (MDRD) Af Amer 115 mL/min (>60) 04/28/20 08:20 Est GFR (MDRD) Non-Af 95 mL/min (>60) 04/28/20 08:20 BUN/Creatinine Ratio 33.0 RATIO (10-20) H 04/28/20 08:20 Glucose 137 mg/dL (74-106) H 04/28/20 08:20 Assessment/Plan: 1. Pain: Tylenol 1000mg PO Q6h PRN Pain 1-3/10, Oxycodone 5mg PO Q4h PRN Pain 4-03/17. Please continue to monitor for increased/decreased S/S pain, PRN medication usage. 2. CAD: Aspirin 81mg PO Daily, Lipitor 10mg PO QHS, Lisinopril 5mg PO Daily, Toprol XL 25mg PO Daily. Please continue to monitor BP, pulse, renal function/electrolytes, lipid panel annually or sooner if clinically indicated, S/S bleeding/bruising. 3. UTI: Keflex 500mg PO Q8h thru 05/02/20. Please continue to monitor for resolution of infection, renal function, S/S GI upset. 4. Hypothyroid: Synthroid 25mcg PO Daily. Please continue to monitor thyroid function tests at least annually or sooner if clinically indicated. 5. BPH: Flomax 0.4mg PO Daily. Please continue to monitor for improvement in urinary symptoms, S/S ongoing retention. 6. DVT Prophylaxis: Lovenox 40mg SC Daily. Please continue to monitor for S/S bleeding/bruising, renal function. Psychotropic Medications: None Unnecessary Medications: None Bowel Regimen: Senna/Docusate 2 tab PO BID PRN Constipation. Please continue to monitor for increased/decreased bowel movements, PRN medication usage. Date of Note:: 04/30/20 - Provider Comments Provider responsibility: Provider responsible to enter orders to implement recommendations <Abdulaziz Richardson Chi - Last Filed: 04/30/20 17:20> Progress Note - Pharmacy Subjective: [] Objective: Allergies No Known Allergies Allergy (Verified 04/24/20 22:26) Current Medications Generic Name Dose Route Start Last Admin Trade Name Freq PRN Reason Stop Dose Admin Acetaminophen 1,000 mg 04/27/20 18:35 04/30/20 05:35 Acetaminophen 500 Mg Tablet PO 1,000 mg Q6H PRN PRN Administration Pain Score 1-3 Aspirin 81 mg 04/28/20 08:00 04/30/20 07:53 Aspirin 81 Mg Tab.Chew PO 81 mg DAILY@0800 JO Administration Atorvastatin Calcium 10 mg 04/27/20 22:00 04/29/20 19:45 Atorvastatin Calcium 10 Mg Tablet PO 10 mg QHS JO Administration Cephalexin 500 mg 04/27/20 22:00 04/30/20 14:11 Cephalexin 500 Mg Capsule PO 05/02/20 22:01 500 mg Q8 JO Administration Enoxaparin Sodium 40 mg 04/28/20 06:00 04/30/20 05:33 Enoxaparin 40 Mg/0.4 Ml Syringe SC 05/11/20 08:00 40 mg DAILY JO Administration Levothyroxine Sodium 25 mcg 04/28/20 06:00 04/30/20 05:34 Levothyroxine 25 Mcg Tablet PO 25 mcg DAILY [facility] Administration Lisinopril 5 mg 04/28/20 06:00 04/30/20 05:34 Lisinopril 5 Mg Tablet PO 5 mg DAILY [facility] Administration Metoprolol Succinate 25 mg 04/28/20 06:00 04/30/20 05:34 Metoprolol(Xl)Succ 25 Mg Tablet PO 25 mg DAILY [facility] Administration Nutritional Formula (Lactose Free) 120 ml 04/27/20 22:00 04/30/20 11:58 Ensure Enlive 120 Ml Liquid PO 120 ml 4X/DAY [facility] Administration Nystatin 1 applic 04/29/20 22:00 04/30/20 05:34 Nystatin Powder 15gm Bottle TOPICAL 1 applicatio 0600,2200 [facility] Administration Protocol Oxycodone HCl 5 mg 04/27/20 18:36 04/30/20 15:34 Oxycodone 5 Mg Tablet PO 5 mg Q4H PRN PRN Administration Pain Score 4-10 Senna/Docusate Sodium 2 tablet 04/27/20 17:12 Senna/Docusate Sodium 1 Tablet PO BID PRN PRN Constipation Sodium Chloride 10 - 40 ml 04/27/20 17:46 04/30/20 15:35 0.9% Saline Lock 10 Ml Syringe IV 10 ml UD PRN Administration SALINE FLUSH Tamsulosin HCl 0.4 mg 04/28/20 06:00 04/30/20 05:34 Tamsulosin Hcl 0.4 Mg Capsule PO 0.4 mg DAILY OJ Administration Tuberculin PPD 5 tu 05/05/20 10:00 Tuberculin,Purif.Prot.Deriv. 50 Tu/Ml Vial ID 05/05/20 10:01 X1 ONE Problem List NSTEMI (non-ST elevated myocardial infarction) (Acute) Rhabdomyolysis (Acute) Closed left hip fracture (Acute) Elevated PSA (Chronic) BPH (benign prostatic hyperplasia) (Chronic) HTN (hypertension) (Chronic) Hypothyroidism (Chronic) Prostate cancer (Suspected) UTI (urinary tract infection) (Acute) Debility (Acute) Fall (Acute) Pathologic hip fracture (Acute) Urinary retention (Chronic) Venous stasis (Chronic) Chronic systolic congestive heart failure (Chronic) Vital Signs Temp Pulse Resp BP Pulse Ox 96.8 F L 67 16 118/60 95 04/30/20 13:44 04/30/20 13:44 04/30/20 13:44 04/30/20 13:44 04/30/20 13:44 Oxygen Delivery Method Room Air Weight: 78.4 kg Body Mass Index (BMI) 24.0 Sodium 141 mmol/L (136-145) 04/28/20 08:20 Potassium 3.7 mmol/L (3.5-5.1) 04/28/20 08:20 Chloride 112 mmol/L (98-107) H 04/28/20 08:20 Carbon Dioxide 25.0 mmol/L (21.0-32.0) 04/28/20 08:20 Anion Gap 4 (5-15) L 04/28/20 08:20 BUN 27 mg/dL (7-18) H 04/28/20 08:20 Creatinine 0.82 mg/dL (0.70-1.30) 04/28/20 08:20 Est GFR (MDRD) Af Amer 115 mL/min (>60) 04/28/20 08:20 Est GFR (MDRD) Non-Af 95 mL/min (>60) 04/28/20 08:20 BUN/Creatinine Ratio 33.0 RATIO (10-20) H 04/28/20 08:20 Glucose 137 mg/dL (74-106) H 04/28/20 08:20 Assessment/Plan: Psychotropic Medications: Unnecessary Medications: Bowel Regimen: - Provider Comments Provider responsibility: Provider responsible to enter orders to implement recommendations Provider Comments to Recommendations by Pharmacy: Agree
[2020-04-30] MEDS: oxyCODONE 5 MG Tablet PO ×2 (15:34→20:47)
--- NOTE | 2020-04-30 15:46 | CASEMGMT ---
Social Work Spoke with pt to complete initial assessment. Pt explained he lives at home alone and although he did get any assistance with ADLs prior, he was independent with them. Pt stated he laid on the floor for two days before EMS came to get him, when he fell because he couldn't reach the phone, but couldn't tell this worker who called EMS. Pt discussed how he couldn't recall the last time he got a full shower, explaining he sponge bathes due to having a catheter and not getting it wet. He stated his nephew goes grocery shopping for him, but he still struggles to eat full meals, and the house is not the cleanest, stating there is clutter and boxes laying around. Pt stated he has 5 cats that live outdoors, but there is a door that leads to the basement where they stay. Inquired about litter boxes - pt stated he doesn't have any litter boxes, most of the time the cats go to the bathroom outside but not always, and reports to not being able to clean the basement. SW offered to pt needing some assistance at home at [place] because he was unable to care for himself and his house. Pt agreed, but doesn't know how he could get help. SW inquired about Medicaid. Pt stated he has too much money for [facility]. SW and pt discussed pt's finances. Pt reports to making about $1,200/mo for income, having about $10,000 in checking, $3,000 in stocks, and about $13,000 in soliz. SW encouraged pt to use that money to help care for himself and hire a staff nuclear weapons officer or aid, [employer], [employer], etc. Pt expressed understanding. SW to continue to follow. Carlie Gonzáles, ANU HAQUEW
--- NOTE | 2020-04-30 16:01 | NURSING ---
POD #5 so silverlon dressing removed (per post-op notes) and dry ABD dressing applied to LT hip. No date noted on rojas catheter. Resident states he cant remember when it was changed but it is usually changed monthly. New rojas catheter inserted at this time.
--- NOTE | 2020-04-30 16:51 | NURSING ---
Attempted to contact patient's family for update and to make arrangements for transportation for Dr. howard. Left message for family to call back.
[2020-04-30] MEDS: Atorvastatin Calcium 10 MG Tablet PO (20:47)
[2020-05-01 04:29] VITALS: BP 128/61; PULSE 67; RESP 16; TEMP 36.6; O2SAT 96
[2020-05-01] MEDS: oxyCODONE 5 MG Tablet PO (04:35)
[2020-05-01 04:36] VITALS: BP 128/61; PULSE 67
[2020-05-01] MEDS: Lisinopril 5 MG Tablet PO (04:36)
[2020-05-01] MEDS: Levothyroxine 25 MCG TABLET PO (04:36)
[2020-05-01] MEDS: Cephalexin 500 MG Capsule PO ×3 (04:36→20:12)
[2020-05-01] MEDS: Metoprolol(XL)Succ 25 MG Tablet PO (04:36)
[2020-05-01] MEDS: Tamsulosin HCl 0.4 MG Capsule PO (04:36)
[2020-05-01] MEDS: Enoxaparin 40 MG/0.4 ML Syringe SC (04:36)
[2020-05-01] MEDS: Nystatin Powder 15gm Bottle 1 APPLIC TOPICAL ×2 (05:52→20:13)
[2020-05-01] MEDS: Aspirin 81 MG TAB.CHEW PO (07:39)
[2020-05-01 10:00] VITALS: PULSE 88; RESP 18; O2SAT 98
[2020-05-01] MEDS: 0.9% Saline Lock 10 ML Syringe IV (11:12)
--- NOTE | 2020-05-01 11:31 | CASEMGMT ---
Addendum entered by Carlie Gonzáles 05/01/20 13:46: Received return phone call from [facility] nurse, Fina Teeber, whom primarily provided pt's care. Inquired about pt's medical and home conditions. Nurse explained pt's house is a shack, very small, unkept, borderline hoarder, but does have adequate heat and running water. She explained the doorways are so small that anyone needs to turn sideways to get through the doorway, thus, if pt were needing to use a walker, it could not fit in the doorway properly. She stated pt has been refusing all meds, stating my body heals myself, and believes he will get better without any intervention. She reported a nurse is ordered for once a month catheter changes, and weekly leg wrap changes; however, the last two weeks he had been refusing the wraps as well. Between the nurse Rossi and [facility] SW, APS has been called several times. Pt refuses to get showers or have any care for him, especially going to a SNF. The nurse has discussed Palliative or Hospice care with pt as well and he's refused. The nurse is unaware of what the niece knows about the situation, but encourages her to get involved to see if she can help in any way also. SW explained IDT held a care plan meeting this date and explained all of this to the niece and suggested she visit the home as well. Thanked nurse for time and information. Will keep [facility] updated on DC plans. Will continue to follow. Carlie Gonzáles, ANU EXCELLENCE MANAGER Original Note: Social Work IDT met with patient and niece via conference call for care plan meeting. Discussed patient's progress in therapy. Pt is mod for tx and while ambulating 5ft with FWW, mod-min for bed mobility, set up seated for grooming, CGA for UE ADLs, max for LE ADLS, and toileting tasks, using 2lb wts for UE strengthening. Pt is on a cardiac, mech soft diet. Pt is out of isolation 05/11, has ortho f.u appt 05/10, and continues to have catheter. Explained [facility] insurance with NRD 05/01 and continued stay is not guaranteed. Pt was active with [facility] prior. Contacted [facility] to inquire about how nurse's felt the pt's condition and home conditions were, and how often services were provided. Pt was getting SN once/wk, and would not let nurse wrap legs, and stopped taking all of his medications, stated I don't need them. Left message with nurse whom took care of him most to get more detailed information. Dr. Carmen was providing house calls as well. Pt was dx with prostate cancer prior and denied any treatment. SOTERO explained there are some concerns with pt returning home as EMS described the home as deplorable conditions. Deedee stated she has not been in the home for awhile, but the last she was she didn't recall it being that bad. Deedee has offered several times to pt to move to [place] closer to her to get more care, but pt continuously denies. Deedee stated she is willing to do anything she can to assist the pt. Emailed deedee list of [employer] resources, MOW and food resources to get set up prior to pt discharging. Provided the same resources to pt. SOTERO inquired about if pt has hearing aid as his very H.O.H. seems to be a major barrier to pt comprehending information. Deedee explained that is new and he had no issues hearing or comprehending prior. SOTERO left communication for Will continue to follow. ANU SolanoW
[2020-05-01 14:00] VITALS: BP 115/57; PULSE 67; RESP 17; TEMP 36.3; O2SAT 94
--- NOTE | 2020-05-01 16:34 | NURSING ---
Resident and family notified of staff member testing positive for COVID.
[2020-05-01] MEDS: Atorvastatin Calcium 10 MG Tablet PO (20:13)
[2020-05-02] MEDS: oxyCODONE 5 MG Tablet PO (01:54)
[2020-05-02 05:28] VITALS: BP 129/89; PULSE 96; RESP 16; TEMP 36.3; O2SAT 99
[2020-05-02] MEDS: Enoxaparin 40 MG/0.4 ML Syringe SC (05:34)
[2020-05-02 05:35] VITALS: BP 129/89; PULSE 96
[2020-05-02] MEDS: Levothyroxine 25 MCG TABLET PO (05:35)
[2020-05-02] MEDS: Lisinopril 5 MG Tablet PO (05:35)
[2020-05-02] MEDS: Metoprolol(XL)Succ 25 MG Tablet PO (05:35)
[2020-05-02] MEDS: Cephalexin 500 MG Capsule PO ×3 (05:35→20:52)
[2020-05-02] MEDS: Nystatin Powder 15gm Bottle 1 APPLIC TOPICAL ×2 (05:35→20:52)
[2020-05-02] MEDS: Tamsulosin HCl 0.4 MG Capsule PO (05:35)
[2020-05-02] MEDS: 0.9% Saline Lock 10 ML Syringe IV ×2 (05:37→18:10)
[2020-05-02] MEDS: Aspirin 81 MG TAB.CHEW PO (08:02)
--- NOTE | 2020-05-02 10:56 | MDS.RN ---
Pain interview for CATHY 05/04/20 completed.
[2020-05-02 13:45] VITALS: BP 123/57; PULSE 70; RESP 14; TEMP 36.6; O2SAT 94
[2020-05-02] MEDS: Ketoconazole Cream 1 APPLIC TOPICAL (18:01)
[2020-05-02] MEDS: FLUCONAZOLE 150 MG TABLET PO (18:01)
[2020-05-02] MEDS: Atorvastatin Calcium 10 MG Tablet PO (20:52)
[2020-05-03 04:00] VITALS: BP 130/61; PULSE 63; RESP 18; TEMP 37.2; O2SAT 97
[2020-05-03 05:44] VITALS: PULSE 63
[2020-05-03] MEDS: Senna/Docusate Sodium 1 Tablet 2 TABLET PO (05:44)
[2020-05-03] MEDS: Metoprolol(XL)Succ 25 MG Tablet PO (05:44)
[2020-05-03] MEDS: Enoxaparin 40 MG/0.4 ML Syringe SC (05:44)
[2020-05-03] MEDS: Lisinopril 5 MG Tablet PO (05:44)
[2020-05-03] MEDS: Tamsulosin HCl 0.4 MG Capsule PO (05:44)
[2020-05-03] MEDS: Ketoconazole Cream 1 APPLIC TOPICAL ×2 (05:45→16:22)
[2020-05-03] MEDS: Levothyroxine 25 MCG TABLET PO (05:45)
[2020-05-03] MEDS: Nystatin Powder 15gm Bottle 1 APPLIC TOPICAL ×2 (05:50→19:38)
[2020-05-03] MEDS: Aspirin 81 MG TAB.CHEW PO (07:50)
[2020-05-03 09:23] VITALS: PULSE 68; RESP 18; O2SAT 96
--- NOTE | 2020-05-03 09:41 | NURSING ---
PRESSURE REDUCTION FOR AIR MATTRESS APPLIED TO PT BED. PT REFUSED TO TURN, IF TURNED ON SIDE PT SCOOTS RIGHT ONTO BACK.
[2020-05-03 13:42] VITALS: BP 130/60; PULSE 74; RESP 17; TEMP 36.7; O2SAT 96
--- NOTE | 2020-05-03 16:28 | NURSING ---
teds to painful when putting on and taking off. offered FAVIO wraps and pt stated that would be much better. Teds removed at this time. will start FAVIO wraps on 05/04 in AM
[2020-05-03] MEDS: Atorvastatin Calcium 10 MG Tablet PO (19:37)
[2020-05-04 05:07] VITALS: BP 140/69; PULSE 69; RESP 18; TEMP 36.7; O2SAT 96
[2020-05-04] MEDS: Ketoconazole Cream 1 APPLIC TOPICAL ×2 (05:10→16:41)
[2020-05-04 05:11] VITALS: PULSE 69
[2020-05-04] MEDS: Senna/Docusate Sodium 1 Tablet 2 TABLET PO ×2 (05:11→17:08)
[2020-05-04] MEDS: Lisinopril 5 MG Tablet PO (05:11)
[2020-05-04] MEDS: Levothyroxine 25 MCG TABLET PO (05:11)
[2020-05-04] MEDS: Enoxaparin 40 MG/0.4 ML Syringe SC (05:11)
[2020-05-04] MEDS: Tamsulosin HCl 0.4 MG Capsule PO (05:11)
[2020-05-04] MEDS: Metoprolol(XL)Succ 25 MG Tablet PO (05:11)
[2020-05-04] MEDS: Nystatin Powder 15gm Bottle 1 APPLIC TOPICAL ×2 (05:13→20:18)
[2020-05-04] MEDS: Aspirin 81 MG TAB.CHEW PO (07:47)
[2020-05-04 13:46] VITALS: BP 107/51; PULSE 88; RESP 18; TEMP 36.9; O2SAT 91
[2020-05-04] MEDS: oxyCODONE 5 MG Tablet PO (14:13)
--- NOTE | 2020-05-04 16:14 | NURSING ---
Pt's alejandraece, Neva, here to shredder picker keys. Permission given by pt to give keys to deedee.
[2020-05-04] MEDS: Atorvastatin Calcium 10 MG Tablet PO (20:18)
[2020-05-05 05:22] VITALS: BP 118/52; PULSE 62; RESP 16; TEMP 36.5; O2SAT 95
[2020-05-05 05:24] VITALS: BP 118/52; PULSE 62
[2020-05-05] MEDS: Lisinopril 5 MG Tablet PO (05:24)
[2020-05-05] MEDS: Metoprolol(XL)Succ 25 MG Tablet PO (05:24)
[2020-05-05] MEDS: Levothyroxine 25 MCG TABLET PO (05:25)
[2020-05-05] MEDS: Tamsulosin HCl 0.4 MG Capsule PO (05:26)
[2020-05-05] MEDS: Enoxaparin 40 MG/0.4 ML Syringe SC (05:26)
[2020-05-05] MEDS: Ketoconazole Cream 1 APPLIC TOPICAL ×2 (05:29→17:39)
[2020-05-05] MEDS: Nystatin Powder 15gm Bottle 1 APPLIC TOPICAL ×2 (05:29→21:01)
[2020-05-05] MEDS: Senna/Docusate Sodium 1 Tablet 2 TABLET PO (05:37)
[2020-05-05] MEDS: Aspirin 81 MG TAB.CHEW PO (07:47)
[2020-05-05 08:11] LABS: Anion Gap 5 (5-15); BUN 23 mg/dL (7-18); BUN/Creat Ratio 24.9 RATIO (10-20); Calcium,Total 8.3 mg/dL (8.5-10.1); Chloride 107 mmol/L (98-107); Creatinine, Serum 0.92 mg/dL (0.70-1.30); EST Glomerular Filtration Rate 83 mL/min (>60); Est Glom Filt Rate - Afr Amer 100 mL/min (>60); Estimated Creatinine Clearance 62.52 ml/min; Glucose 121 mg/dL (74-106); Potassium 4.4 mmol/L (3.5-5.1); Sodium Level 139 mmol/L (136-145)
[2020-05-05 08:46] LABS: Absolute Lymphocyte Count 1.44 X10^3/uL (0.83-4.51); Absolute Neutrophil Count 6.8 X10^3/uL (2.0-7.7); Basophil# 0.04 X10^3/uL; Basophil% 0.4 % (0-1); Eosinophil# 0.38 X10^3/uL; Hematocrit 32.8 % (40-54); Hemoglobin 10.7 g/dL (13.0-16.5); Lymphocyte # 1.44 X10^3/ul (4.0); Mean Corp Hgb Conc 32.6 g/dL (32-36); Mean Corpuscular Hgb 35.1 pg (27.0-32.0); Mean Corpuscular Volume 107.5 fL (80-94); Mean Platelet Vol. 8.9 fl (6.2-12.0); Monocyte% 8.3 % (0-10); NRBC Flagged by Analyzer 0 % (0-5); Neutrophil # 6.84 X10^3/uL (2.7-7.7); Neutrophil % 71.3 % (47-70); Platelet Count 308 K/mm3 (150-450); RBC Distribution Width CV 14.1 % (11.6-14.6); RBC Distribution Width SD 54.8 fl (35.1-43.9); Red Blood Count 3.05 M/mm3 (4.6-6.2); White Blood Count 9.6 K/mm3 (4.4-11.0)
[2020-05-05] MEDS: Tuberculin,Purif.prot.deriv. 50 TU/ML Vial 5 ML ID (11:20)
[2020-05-05 12:28] VITALS: PULSE 72; RESP 20; O2SAT 96
[2020-05-05 14:12] VITALS: BP 100/47; PULSE 96; RESP 16; TEMP 36.8; O2SAT 97
[2020-05-05] MEDS: Atorvastatin Calcium 10 MG Tablet PO (21:00)
[2020-05-06 05:02] VITALS: BP 131/53; PULSE 62; RESP 16; TEMP 36.8; O2SAT 98
[2020-05-06 05:04] VITALS: BP 131/53; PULSE 62
[2020-05-06] MEDS: Tamsulosin HCl 0.4 MG Capsule PO (05:04)
[2020-05-06] MEDS: Enoxaparin 40 MG/0.4 ML Syringe SC (05:04)
[2020-05-06] MEDS: Levothyroxine 25 MCG TABLET PO (05:04)
[2020-05-06] MEDS: Metoprolol(XL)Succ 25 MG Tablet PO (05:04)
[2020-05-06] MEDS: Lisinopril 5 MG Tablet PO (05:05)
[2020-05-06] MEDS: Ketoconazole Cream 1 APPLIC TOPICAL ×2 (05:07→17:30)
[2020-05-06] MEDS: Nystatin Powder 15gm Bottle 1 APPLIC TOPICAL ×2 (05:08→21:20)
[2020-05-06] MEDS: Aspirin 81 MG TAB.CHEW PO (07:40)
[2020-05-06 13:13] VITALS: BP 114/55; PULSE 80; RESP 16; TEMP 36.6; O2SAT 94
[2020-05-06] MEDS: Atorvastatin Calcium 10 MG Tablet PO (21:20)
[2020-05-07 05:20] VITALS: BP 130/59; PULSE 65; RESP 16; TEMP 36.6; O2SAT 98
[2020-05-07] MEDS: Nystatin Powder 15gm Bottle 1 APPLIC TOPICAL ×2 (05:21→19:33)
[2020-05-07] MEDS: Tamsulosin HCl 0.4 MG Capsule PO (05:22)
[2020-05-07] MEDS: Lisinopril 5 MG Tablet PO (05:22)
[2020-05-07] MEDS: Enoxaparin 40 MG/0.4 ML Syringe SC (05:22)
[2020-05-07 05:23] VITALS: BP 130/59; PULSE 65
[2020-05-07] MEDS: Levothyroxine 25 MCG TABLET PO (05:23)
[2020-05-07] MEDS: Metoprolol(XL)Succ 25 MG Tablet PO (05:23)
[2020-05-07] MEDS: Ketoconazole Cream 1 APPLIC TOPICAL ×2 (05:24→17:14)
[2020-05-07] MEDS: Aspirin 81 MG TAB.CHEW PO (08:27)
[2020-05-07] MEDS: oxyCODONE 5 MG Tablet PO (09:19)
[2020-05-07 11:36] VITALS: BP 131/64; PULSE 57; RESP 16; TEMP 36.1; O2SAT 98
[2020-05-07] MEDS: Atorvastatin Calcium 10 MG Tablet PO (19:33)
[2020-05-08 05:18] VITALS: BP 127/54; PULSE 63; RESP 18; TEMP 36.8; O2SAT 95
[2020-05-08] MEDS: Enoxaparin 40 MG/0.4 ML Syringe SC (05:20)
[2020-05-08 05:21] VITALS: BP 127/54; PULSE 63
[2020-05-08] MEDS: Tamsulosin HCl 0.4 MG Capsule PO (05:21)
[2020-05-08] MEDS: Levothyroxine 25 MCG TABLET PO (05:21)
[2020-05-08] MEDS: Ketoconazole Cream 1 APPLIC TOPICAL ×2 (05:21→17:58)
[2020-05-08] MEDS: Lisinopril 5 MG Tablet PO (05:21)
[2020-05-08] MEDS: Metoprolol(XL)Succ 25 MG Tablet PO (05:21)
[2020-05-08] MEDS: Aspirin 81 MG TAB.CHEW PO (08:05)
[2020-05-08] MEDS: oxyCODONE 5 MG Tablet PO (08:59)
--- NOTE | 2020-05-08 09:47 | MDS.RN ---
Information for the mds was obtained from review of the clinical record, interview of resident, staff, and direct observation of resident's care.
[2020-05-08 13:19] VITALS: BP 105/52; PULSE 64; RESP 18; TEMP 36.7; O2SAT 100; O2SAT 90
[2020-05-08 13:35] VITALS: BP 95/46; PULSE 59; RESP 18; TEMP 36.7; O2SAT 100
--- NOTE | 2020-05-08 16:47 | CASEMGMT ---
Social Work Insurance approved additional days with NRD 05/14 and indicated a NOMNC may be issued at that time. More time allowed for discharge planning. Spoke with deedee and provided that information. Inquired about deedee's follow up on nonskilled HHC and DC plans. Deedee stated she had called several HHC agencies and very few had availability and could service pt's area. She did find one company that would be willing to service his area but after she visited pt's home, she has a better understanding on pt's deplorable living conditions, and does not believe and ICICLE MACHINE OPERATOR would be able to stay at the house. Updated niece on pt's level of assist and IDTs recommendations for SNF. Deedee understands and did offer for pt to move into her mother's home that no one is currently living in that is in [place] to serve for better conditions and possibly get ICICLE MACHINE OPERATOR to that house. SW stated this worker can follow up with pt soon on his thoughts. Encouraged niece to speak with pt as well and provide that additional option. Niece agreed. Niece asked if pt denies options and wants to go back home, what would happen. SW explained pt can make his own decisions, and if he chooses to DC home despite having assistance, that is what will happen and SW will call APS and restart HHC services. Deedee expressed understanding and appreciative of SOTERO efforts. Will continue to follow. ANU Solano
[2020-05-08] MEDS: Atorvastatin Calcium 10 MG Tablet PO (20:26)
[2020-05-08] MEDS: Nystatin Powder 15gm Bottle 1 APPLIC TOPICAL (20:26)
[2020-05-09 06:20] VITALS: BP 124/71; PULSE 68; RESP 18; TEMP 36.8; O2SAT 97
[2020-05-09] MEDS: Levothyroxine 25 MCG TABLET PO (06:23)
[2020-05-09] MEDS: Tamsulosin HCl 0.4 MG Capsule PO (06:23)
[2020-05-09] MEDS: Enoxaparin 40 MG/0.4 ML Syringe SC (06:23)
[2020-05-09] MEDS: Ketoconazole Cream 1 APPLIC TOPICAL ×2 (06:23→17:10)
[2020-05-09 06:24] VITALS: PULSE 68
[2020-05-09] MEDS: Nystatin Powder 15gm Bottle 1 APPLIC TOPICAL ×2 (06:24→20:27)
[2020-05-09] MEDS: Metoprolol(XL)Succ 25 MG Tablet PO (06:24)
[2020-05-09] MEDS: Lisinopril 5 MG Tablet PO (06:24)
[2020-05-09] MEDS: Aspirin 81 MG TAB.CHEW PO (08:25)
[2020-05-09 13:44] VITALS: BP 105/44; PULSE 66; RESP 16; TEMP 36.6; O2SAT 99
--- NOTE | 2020-05-09 17:22 | NURSING ---
LT calf mepilex removed, area healed. scabbed over. mepilex to coccyx changed this evening. removed aurora wraps and applied lotion as ordered. cream applied to groin as ordered, area not quite as red as previously.
[2020-05-09] MEDS: Atorvastatin Calcium 10 MG Tablet PO (20:27)
[2020-05-10 05:22] VITALS: BP 118/64; PULSE 61; RESP 16; TEMP 36.7; O2SAT 95
[2020-05-10] MEDS: Nystatin Powder 15gm Bottle 1 APPLIC TOPICAL ×2 (05:23→20:19)
[2020-05-10] MEDS: Enoxaparin 40 MG/0.4 ML Syringe SC (05:23)
[2020-05-10] MEDS: Ketoconazole Cream 1 APPLIC TOPICAL ×2 (05:23→17:43)
[2020-05-10] MEDS: Tamsulosin HCl 0.4 MG Capsule PO (05:23)
[2020-05-10 05:24] VITALS: BP 118/64; PULSE 61
[2020-05-10] MEDS: Metoprolol(XL)Succ 25 MG Tablet PO (05:24)
[2020-05-10] MEDS: Lisinopril 5 MG Tablet PO (05:24)
[2020-05-10] MEDS: Levothyroxine 25 MCG TABLET PO (05:24)
[2020-05-10] MEDS: Aspirin 81 MG TAB.CHEW PO (08:05)
[2020-05-10 10:45] VITALS: PULSE 59; RESP 20; O2SAT 99
[2020-05-10] MEDS: Menthol/Lanolin/Calamine/Znox 113 GM Tube 1 APPLIC TOPICAL ×2 (12:53→20:18)
[2020-05-10 13:46] VITALS: BP 107/54; PULSE 60; RESP 16; TEMP 36.6; O2SAT 98
--- NOTE | 2020-05-10 15:41 | NURSING ---
Resident and family notified of staff members testing positive for COVID
--- NOTE | 2020-05-10 16:00 | CASEMGMT ---
Addendum entered by Carlie Gonzáles 05/11/20 14:55: Deedee contacted SW. Spoke with deedee at length about different options for pt. Pt is still adamant about returning home. Deedee stated she found an aide whom would be able to go to pt's area, but unsure if they would be comfortable in the home. She found a [employer] that sends a group of people to the pt's home for a day to assist with deep cleaning, but it would require pt to pay for that expense. Dtr will discuss that with pt. Pt inquired about hospice. SW explained hospice services and emphasized to begin those services the pt would be in agreement and in alignment with those wishes. Also, hospice and skilled HHC cannot be be active at the same time. Answered several questions about skilled and nonskilled HHC. SW stated she can discuss hospice with pt and determine his wishes and make the referrals of his choosing. Meanwhile, deedee will continue to work on nonskilled aide and the cleaning agency. Attempted to speak with pt, but unavaialble. Will continue to attempt. Original Note: Social Work Left message with deedee to follow up on DC plans and conversation with pt. Deedee had inquired the day prior to speak with physician about pt's eligibility for hospice. Will continue to follow. ANU Solano
[2020-05-10] MEDS: Acetaminophen 500 MG Tablet 1000 MG PO (20:18)
[2020-05-10] MEDS: Atorvastatin Calcium 10 MG Tablet PO (20:19)
[2020-05-11 05:27] VITALS: BP 118/56; PULSE 62; RESP 17; TEMP 37.1; O2SAT 98
[2020-05-11] MEDS: Nystatin Powder 15gm Bottle 1 APPLIC TOPICAL ×2 (05:28→19:57)
[2020-05-11] MEDS: Menthol/Lanolin/Calamine/Znox 113 GM Tube 1 APPLIC TOPICAL ×2 (05:28→19:57)
[2020-05-11] MEDS: Ketoconazole Cream 1 APPLIC TOPICAL ×2 (05:29→18:55)
[2020-05-11] MEDS: Tamsulosin HCl 0.4 MG Capsule PO (05:30)
[2020-05-11 05:31] VITALS: BP 118/56; PULSE 62
[2020-05-11] MEDS: Levothyroxine 25 MCG TABLET PO (05:31)
[2020-05-11] MEDS: Lisinopril 5 MG Tablet PO (05:31)
[2020-05-11] MEDS: Metoprolol(XL)Succ 25 MG Tablet PO (05:31)
[2020-05-11] MEDS: Acetaminophen 500 MG Tablet 1000 MG PO ×3 (05:31→19:58)
[2020-05-11] MEDS: Aspirin 81 MG TAB.CHEW PO (07:52)
[2020-05-11 13:52] VITALS: BP 110/58; PULSE 64; RESP 17; TEMP 36.6; O2SAT 99
[2020-05-11] MEDS: Atorvastatin Calcium 10 MG Tablet PO (19:58)
[2020-05-12 05:23] VITALS: BP 112/60; PULSE 55; RESP 18; TEMP 36.8; O2SAT 99
[2020-05-12 05:25] VITALS: BP 112/60; PULSE 55
[2020-05-12] MEDS: Tamsulosin HCl 0.4 MG Capsule PO (05:25)
[2020-05-12] MEDS: Metoprolol(XL)Succ 25 MG Tablet PO (05:25)
[2020-05-12] MEDS: Lisinopril 5 MG Tablet PO (05:25)
[2020-05-12] MEDS: Levothyroxine 25 MCG TABLET PO (05:25)
[2020-05-12] MEDS: Acetaminophen 500 MG Tablet 1000 MG PO ×3 (05:25→19:43)
[2020-05-12] MEDS: Ketoconazole Cream 1 APPLIC TOPICAL ×2 (05:26→17:32)
[2020-05-12] MEDS: Nystatin Powder 15gm Bottle 1 APPLIC TOPICAL ×2 (05:26→19:43)
[2020-05-12] MEDS: Menthol/Lanolin/Calamine/Znox 113 GM Tube 1 APPLIC TOPICAL ×2 (05:26→19:43)
[2020-05-12] MEDS: Aspirin 81 MG TAB.CHEW PO (07:51)
[2020-05-12 08:16] LABS: Absolute Lymphocyte Count 1.21 X10^3/uL (0.83-4.51); Absolute Neutrophil Count 3.7 X10^3/uL (2.0-7.7); Basophil# 0.03 X10^3/uL; Basophil% 0.5 % (0-1); Eosinophil# 0.39 X10^3/uL; Eosinophils% 6.7 % (0-5); Hemoglobin 10.6 g/dL (13.0-16.5); Lymphocyte # 1.21 X10^3/ul (4.0); Lymphocyte % 20.9 % (19-41); Mean Corp Hgb Conc 33.1 g/dL (32-36); Mean Corpuscular Volume 105.6 fL (80-94); Mean Platelet Vol. 8.7 fl (6.2-12.0); Monocyte# 0.48 X10^3/uL; Monocyte% 8.3 % (0-10); NRBC Flagged by Analyzer 0 % (0-5); Neutrophil # 3.65 X10^3/uL (2.7-7.7); Neutrophil % 63.3 % (47-70); Platelet Count 241 K/mm3 (150-450); RBC Distribution Width SD 54.3 fl (35.1-43.9); Red Blood Count 3.03 M/mm3 (4.6-6.2); White Blood Count 5.8 K/mm3 (4.4-11.0)
[2020-05-12 08:41] LABS: Anion Gap 5 (5-15); BUN 26 mg/dL (7-18); BUN/Creat Ratio 32.4 RATIO (10-20); Calcium,Total 8.7 mg/dL (8.5-10.1); Chloride 107 mmol/L (98-107); EST Glomerular Filtration Rate 97 mL/min (>60); Est Glom Filt Rate - Afr Amer 118 mL/min (>60); Estimated Creatinine Clearance 69.06 ml/min; Glucose 103 mg/dL (74-106); Potassium 4.6 mmol/L (3.5-5.1); Sodium Level 139 mmol/L (136-145)
[2020-05-12] MEDS: oxyCODONE 5 MG Tablet PO (09:18)
[2020-05-12 10:00] VITALS: PULSE 65; RESP 18; O2SAT 98
[2020-05-12 13:24] VITALS: BP 108/59; PULSE 61; RESP 16; TEMP 36.6; O2SAT 97
[2020-05-12] MEDS: Atorvastatin Calcium 10 MG Tablet PO (19:43)
[2020-05-13 05:46] VITALS: BP 137/65; PULSE 59; RESP 18; TEMP 36.9; O2SAT 95
[2020-05-13 05:48] VITALS: PULSE 59
[2020-05-13] MEDS: Tamsulosin HCl 0.4 MG Capsule PO (05:48)
[2020-05-13] MEDS: Metoprolol(XL)Succ 25 MG Tablet PO (05:48)
[2020-05-13] MEDS: Lisinopril 5 MG Tablet PO (05:48)
[2020-05-13] MEDS: Levothyroxine 25 MCG TABLET PO (05:48)
[2020-05-13] MEDS: Menthol/Lanolin/Calamine/Znox 113 GM Tube 1 APPLIC TOPICAL ×2 (05:49→20:47)
[2020-05-13] MEDS: Acetaminophen 500 MG Tablet 1000 MG PO ×3 (05:49→20:47)
[2020-05-13] MEDS: Nystatin Powder 15gm Bottle 1 APPLIC TOPICAL ×2 (05:49→20:47)
[2020-05-13] MEDS: Aspirin 81 MG TAB.CHEW PO (07:47)
[2020-05-13 13:29] VITALS: BP 121/54; PULSE 61; RESP 17; TEMP 36.7; O2SAT 98
[2020-05-13] MEDS: oxyCODONE 5 MG Tablet PO (19:34)
[2020-05-13] MEDS: Atorvastatin Calcium 10 MG Tablet PO (20:47)
[2020-05-14 06:04] VITALS: BP 124/55; PULSE 60; RESP 16; TEMP 36.6; O2SAT 96
[2020-05-14] MEDS: Levothyroxine 25 MCG TABLET PO (06:06)
[2020-05-14] MEDS: Tamsulosin HCl 0.4 MG Capsule PO (06:06)
[2020-05-14] MEDS: Acetaminophen 500 MG Tablet 1000 MG PO ×3 (06:06→20:45)
[2020-05-14] MEDS: Lisinopril 5 MG Tablet PO (06:06)
[2020-05-14 06:07] VITALS: BP 124/55; PULSE 60
[2020-05-14] MEDS: Metoprolol(XL)Succ 25 MG Tablet PO (06:07)
[2020-05-14] MEDS: Menthol/Lanolin/Calamine/Znox 113 GM Tube 1 APPLIC TOPICAL ×2 (06:08→20:40)
[2020-05-14] MEDS: Nystatin Powder 15gm Bottle 1 APPLIC TOPICAL ×2 (06:08→20:40)
[2020-05-14] MEDS: Aspirin 81 MG TAB.CHEW PO (08:12)
[2020-05-14 13:38] VITALS: BP 106/58; PULSE 68; RESP 18; TEMP 36.8; O2SAT 95
--- NOTE | 2020-05-14 16:12 | CASEMGMT ---
Social Work Insurance approved additional days with NRD 05/17 and to anticipate a NOMNC. Notified pt. Spoke to him about his wishes at DC - to continue with therapy or to be comfortable. Pt unable to decide. Stated kind of hard to make a decision about that right now. SW offered to think more about it and SW to follow up. Pt agreeable. Left message with niece on above information. Will continue to follow. Carlie Gonzáles, PLANT MAINTENANCE ENGINEER BODY SERVICE TEAM MEMBER
[2020-05-14] MEDS: Atorvastatin Calcium 10 MG Tablet PO (20:45)
[2020-05-15 04:49] VITALS: BP 140/53; PULSE 65; RESP 16; TEMP 36.6; O2SAT 97
[2020-05-15] MEDS: Acetaminophen 500 MG Tablet 1000 MG PO ×3 (04:51→22:00)
[2020-05-15 04:52] VITALS: BP 140/53; PULSE 65
[2020-05-15] MEDS: Levothyroxine 25 MCG TABLET PO (04:52)
[2020-05-15] MEDS: Lisinopril 5 MG Tablet PO (04:52)
[2020-05-15] MEDS: Metoprolol(XL)Succ 25 MG Tablet PO (04:52)
[2020-05-15] MEDS: Tamsulosin HCl 0.4 MG Capsule PO (04:52)
[2020-05-15] MEDS: Nystatin Powder 15gm Bottle 1 APPLIC TOPICAL ×2 (04:52→21:59)
[2020-05-15] MEDS: Menthol/Lanolin/Calamine/Znox 113 GM Tube 1 APPLIC TOPICAL ×2 (04:53→21:59)
[2020-05-15] MEDS: Aspirin 81 MG TAB.CHEW PO (08:00)
[2020-05-15 14:22] VITALS: BP 112/47; PULSE 66; RESP 16; TEMP 36.6; O2SAT 98
[2020-05-15] MEDS: Atorvastatin Calcium 10 MG Tablet PO (22:00)
[2020-05-16 05:18] VITALS: BP 114/60; PULSE 59; RESP 17; TEMP 36.8; O2SAT 96
[2020-05-16] MEDS: Menthol/Lanolin/Calamine/Znox 113 GM Tube 1 APPLIC TOPICAL ×2 (05:19→19:39)
[2020-05-16] MEDS: Levothyroxine 25 MCG TABLET PO (05:20)
[2020-05-16] MEDS: Tamsulosin HCl 0.4 MG Capsule PO (05:20)
[2020-05-16] MEDS: Nystatin Powder 15gm Bottle 1 APPLIC TOPICAL ×2 (05:20→19:40)
[2020-05-16] MEDS: Acetaminophen 500 MG Tablet 1000 MG PO ×3 (05:20→19:50)
[2020-05-16 05:21] VITALS: BP 114/60; PULSE 59
[2020-05-16] MEDS: Metoprolol(XL)Succ 25 MG Tablet PO (05:21)
[2020-05-16] MEDS: Lisinopril 5 MG Tablet PO (05:21)
[2020-05-16] MEDS: Aspirin 81 MG TAB.CHEW PO (07:49)
[2020-05-16 12:47] VITALS: PULSE 70; RESP 16; O2SAT 98
[2020-05-16 15:19] VITALS: BP 132/66; PULSE 70; RESP 16; TEMP 36.7; O2SAT 98
[2020-05-16] MEDS: Atorvastatin Calcium 10 MG Tablet PO (19:51)
[2020-05-17 05:58] VITALS: BP 141/58; PULSE 56; RESP 17; TEMP 36.8; O2SAT 95
[2020-05-17] MEDS: Menthol/Lanolin/Calamine/Znox 113 GM Tube 1 APPLIC TOPICAL ×2 (05:59→21:49)
[2020-05-17 06:00] VITALS: BP 141/58; PULSE 56
[2020-05-17] MEDS: Metoprolol(XL)Succ 25 MG Tablet PO (06:00)
[2020-05-17] MEDS: Lisinopril 5 MG Tablet PO (06:00)
[2020-05-17] MEDS: Levothyroxine 25 MCG TABLET PO (06:00)
[2020-05-17] MEDS: Tamsulosin HCl 0.4 MG Capsule PO (06:00)
[2020-05-17] MEDS: Nystatin Powder 15gm Bottle 1 APPLIC TOPICAL ×2 (06:00→21:49)
[2020-05-17] MEDS: Acetaminophen 500 MG Tablet 1000 MG PO ×3 (06:01→21:48)
[2020-05-17] MEDS: Aspirin 81 MG TAB.CHEW PO (08:13)
[2020-05-17] MEDS: Senna/Docusate Sodium 1 Tablet 2 TABLET PO (11:33)
[2020-05-17 14:42] VITALS: BP 119/60; PULSE 72; RESP 14; TEMP 36.2; O2SAT 95
--- NOTE | 2020-05-17 16:30 | CASEMGMT ---
Social Work Insurance issued LCD 05/19, DC 05/20. Spoke with pt about DC plans. Pt stated he would like to go home and with continued therapy. Contacted [facility] to restart services. Ordered PT/OT/SN/NAVA/SW. [facility] APS is closed on this date - will make referral the following day. Pt requesting FWW and 3-in-1 commode. Referred to [facility]. Contacted niece. Niece will transport pt. Plan: DC home 05/20 with [facility] PT/OT/SN/NAVA/SW, [employer] - FWW, BSC, APS Carlie Gonzáles, PRE WAVE ASSEMBLER OIL LEASE OPERATOR
--- NOTE | 2020-05-17 19:00 | PCM.DC ---
- Discharge Diagnoses Current Active Problems: Current Active and Chronic Problems NSTEMI (non-ST elevated myocardial infarction) (Acute) Rhabdomyolysis (Acute) Closed left hip fracture (Acute) Elevated PSA (Chronic) BPH (benign prostatic hyperplasia) (Chronic) HTN (hypertension) (Chronic) Hypothyroidism (Chronic) UTI (urinary tract infection) (Acute) Debility (Acute) Fall (Acute) Pathologic hip fracture (Acute) Urinary retention (Chronic) Venous stasis (Chronic) Chronic systolic congestive heart failure (Chronic) You will use the following diet at home:: No restrictions, Regular Your food should be the consistency of: Regular Your liquids should be the consistency of: Regular/Thin Discharge Activity: Return to Normal Activity, May Shower, Use Walker Weight Bearing Status: Weight bearing as tolerated Call your doctor if you observe: Fever of 101 or Higher, Inability to urinate, Inability to have a bowel movement, Shortness of breath, Chest pain, Uncontrolled pain Allergies/Adverse Reactions: Allergies No Known Allergies Allergy (Verified 04/24/20 22:26) Medications to take at Discharge Levothyroxine [Synthroid] 25 mcg PO DAILY 04/24/20 Metoprolol(XL)Succ [Toprol Xl (Beta Mynor)] 25 mg PO DAILY 04/24/20 Tamsulosin HCl [Flomax] 0.4 mg PO DAILY 04/24/20 Aspirin [Aspirin, Baby] 81 mg PO DAILY@0800 04/27/20 Acetaminophen [Tylenol] 1,000 mg PO TID tablet 05/17/20 Aspirin [Aspirin, Baby] 81 mg PO DAILYCM tab.chew 05/17/20 Atorvastatin Calcium [Lipitor] 10 mg PO QHS #30 tab 05/17/20 Emollient Combination No.72 [Eucerin Intensive Repair] 1 applic TOPICAL BID lotion 05/17/20 Lisinopril [Zestril] 5 mg PO DAILY #30 tab 05/17/20 Menthol/Lanolin/Calamine/Znox [Calmoseptine Ointment] 1 applic TOPICAL 0600,2200 tube 05/17/20 Nystatin Powder [Mycostatin Powder] 1 applic TOPICAL 0600,2200 bottle 05/17/20 The following prescriptions were given: Atorvastatin Calcium [Lipitor] 10 mg PO QHS #30 tab Transmission Status: Pending to [id number] Lisinopril [Zestril] 5 mg PO DAILY #30 tab Transmission Status: Pending to [id number] Primary Care Physician: Care Physician,No Primary [Primary Care Provider] - Please follow up with your Primary Care Physician in: 2 weeks. Test Results: Test results from this visit will be discussed in further detail at your follow-up appointment, if applicable. Please Follow Up With: Laxmi Warren MD When: 2 Weeks Please Follow Up With: Malik Gao MD When: 4 weeks Proposed Discharge Date: 05/20/20
--- NOTE | 2020-05-17 19:02 | DS.PCM_ITS ---
Discharge Date and Diagnosis - Problem List Patient Problems: Active and Suspected Problems NSTEMI (non-ST elevated myocardial infarction) (Acute) Rhabdomyolysis (Acute) Closed left hip fracture (Acute) Prostate cancer (Suspected) UTI (urinary tract infection) (Acute) Debility (Acute) Fall (Acute) Pathologic hip fracture (Acute) Date of Admission: 04/27/20 Date of Discharge: 05/20/20 - Primary Discharge Diagnosis Acute Problems: Active Problems NSTEMI (non-ST elevated myocardial infarction) (Acute) Rhabdomyolysis (Acute) Closed left hip fracture (Acute) UTI (urinary tract infection) (Acute) Debility (Acute) Fall (Acute) Pathologic hip fracture (Acute) Suspected Problems: Suspected Problems Prostate cancer (Suspected) - Secondary Discharge Diagnosis Chronic Problems: Chronic Problems Elevated PSA (Chronic) BPH (benign prostatic hyperplasia) (Chronic) HTN (hypertension) (Chronic) Hypothyroidism (Chronic) Urinary retention (Chronic) Venous stasis (Chronic) Chronic systolic congestive heart failure (Chronic) Hospital Course and Treatment Imaging Results: 05/09/20 15:21 Diet: Regular - General Food consistency:: Mechanical (Minced/Moist) Liquid Consistency:: Regular/Thin Is pt able to select menu?: Yes Diet Comments: Please Send easily chewable food d/t dentures uneven. Operations: None, - - Hemiarthroplasty left hip Procedures: None Summary of Care Provided: The patient is a 84 year old Male with below past medical history hospitalized for left hip fracture, complicated by NSTEMI, rhabdomyolysis, urinary tract infection, anemia requiring transfusion, untreated prostate cancer, admitted to TCU with debility, here for rehabilitation, strengthening, prior to discharge home alone. Discharge home alone, [facility] PT/OT/SN/POLE INCISOR OPERATOR/SW, [place] Front wheeled walker, Beside Commde. Adult Protective Services. Patient Problems: Active and Suspected Problems NSTEMI (non-ST elevated myocardial infarction) (Acute) Rhabdomyolysis (Acute) Closed left hip fracture (Acute) Prostate cancer (Suspected) UTI (urinary tract infection) (Acute) Debility (Acute) Fall (Acute) Pathologic hip fracture (Acute) - Physical Exam Vitals/I&O's: Vital Signs Temp Pulse Resp BP Pulse Ox 97.2 F L 72 14 119/60 95 05/17/20 14:42 05/17/20 14:42 05/17/20 14:42 05/17/20 14:42 05/17/20 14:42 Oxygen Delivery Method Room Air Weight: 72.121 kg Body Mass Index (BMI) 24.0 Intake and Output for Last 24 Hours 05/15/20 05/16/20 05/17/20 23:59 23:59 23:59 Intake Total 900 / 900 600 / 600 880 / 880 Output Total 1575 / 1575 1725 / 1725 1700 / 1700 Balance -675 / -675 -1125 / -1125 -820 / -820 Microbiology Past 72 Hours 05/15/20 11:30 Nasal Secretion SARS-CoV-2 Antigen (Rapid) - Final Current Medications Acetaminophen (Acetaminophen 500 Mg Tablet) 1,000 mg PO TID [facility] Last Admin: 05/17/20 13:49 Dose: 1,000 mg Documented by: Aspirin (Aspirin 81 Mg Tab.Chew) 81 mg PO DAILYCM [facility] Last Admin: 05/17/20 08:13 Dose: 81 mg Documented by: Atorvastatin Calcium (Atorvastatin Calcium 10 Mg Tablet) 10 mg PO QHS [facility] Last Admin: 05/16/20 19:51 Dose: 10 mg Documented by: Calamine/Phenol (Menthol/Lanolin/Calamine/Znox 113 Gm Tube) 1 applic TOPICAL 0600,2200 [facility]; Protocol Last Admin: 05/17/20 05:59 Dose: 1 applicatio Documented by: Emollient Ointment (Emollient Combination No.72 500 Ml Lotion) 1 applic TOPICAL BID [facility]; Protocol Last Admin: 05/17/20 17:47 Dose: 1 applicatio Documented by: Levothyroxine Sodium (Levothyroxine 25 Mcg Tablet) 25 mcg PO DAILY [facility] Last Admin: 05/17/20 06:00 Dose: 25 mcg Documented by: Lisinopril (Lisinopril 5 Mg Tablet) 5 mg PO DAILY [facility] Last Admin: 05/17/20 06:00 Dose: 5 mg Documented by: Metoprolol Succinate (Metoprolol(Xl)Succ 25 Mg Tablet) 25 mg PO DAILY [facility] Last Admin: 05/17/20 06:00 Dose: 25 mg Documented by: Nutritional Formula (Lactose Free) (Ensure Enlive 120 Ml Liquid) 120 ml PO 4X/DAY [facility] Last Admin: 05/17/20 17:46 Dose: 120 ml Documented by: Nystatin (Nystatin Powder 15gm Bottle) 1 applic TOPICAL 0600,2200 [facility]; Protocol Last Admin: 05/17/20 06:00 Dose: 1 applicatio Documented by: Oxycodone HCl (Oxycodone 5 Mg Tablet) 5 mg PO Q4H PRN PRN PRN Reason: Pain Score 4-10 Last Admin: 05/13/20 19:34 Dose: 5 mg Documented by: Senna/Docusate Sodium (Senna/Docusate Sodium 1 Tablet) 2 tablet PO BID PRN PRN PRN Reason: Constipation Last Admin: 05/17/20 11:33 Dose: 2 tablet Documented by: Sodium Chloride (0.9% Saline Lock 10 Ml Syringe) 10 - 40 ml IV UD PRN PRN Reason: SALINE FLUSH Last Admin: 05/02/20 18:10 Dose: 10 ml Documented by: Sodium Chloride (0.9% Saline Lock 10 Ml Syringe) 10 - 40 ml IV UD PRN PRN Reason: SALINE FLUSH Sodium Chloride (0.9% Saline Lock 10 Ml Syringe) 10 - 40 ml IV UD PRN PRN Reason: SALINE FLUSH Tamsulosin HCl (Tamsulosin Hcl 0.4 Mg Capsule) 0.4 mg PO DAILY [facility] Last Admin: 05/17/20 06:00 Dose: 0.4 mg Documented by: Discharge Diet: No Restrictions Discharge Activity: Return to Normal Activity, May Shower, Use Walker Weight Bearing Status: Weight bearing as tolerated Call your doctor if you observe: Fever of 101 or Higher, Inability to urinate, Inability to have a bowel movement, Shortness of breath, Chest pain, Uncontrolled pain Home Medications: Medications to take at Discharge Levothyroxine [Synthroid] 25 mcg PO DAILY 04/24/20 Metoprolol(XL)Succ [Toprol Xl (Beta Mynor)] 25 mg PO DAILY 04/24/20 Tamsulosin HCl [Flomax] 0.4 mg PO DAILY 04/24/20 Aspirin [Aspirin, Baby] 81 mg PO DAILY@0800 04/27/20 Acetaminophen [Tylenol] 1,000 mg PO TID tablet 05/17/20 Aspirin [Aspirin, Baby] 81 mg PO DAILYCM tab.chew 05/17/20 Atorvastatin Calcium [Lipitor] 10 mg PO QHS #30 tab 05/17/20 Emollient Combination No.72 [Eucerin Intensive Repair] 1 applic TOPICAL BID lotion 05/17/20 Lisinopril [Zestril] 5 mg PO DAILY #30 tab 05/17/20 Menthol/Lanolin/Calamine/Znox [Calmoseptine Ointment] 1 applic TOPICAL 0600,2200 tube 05/17/20 Nystatin Powder [Mycostatin Powder] 1 applic TOPICAL 0600,2200 bottle 05/17/20 Following Prescriptions Were Given to Patient: Atorvastatin Calcium [Lipitor] 10 mg PO QHS #30 tab Transmission Status: Pending to [id number] Lisinopril [Zestril] 5 mg PO DAILY #30 tab Transmission Status: Pending to [id number] Primary Care Physician: Care Physician,No Primary [Primary Care Provider] - Please follow up with your Primary Care Physician in: 2 weeks. Please Follow Up With: Laxmi Warren MD When: 2 Weeks Please Follow Up With: Malik Gao MD When: 4 weeks Disposition: Home with Home Health Minutes spent on discharge:: 35 Patient Condition:: Stable Medical Necessity - Tobacco Use Smoking Status: Never smoker Tobacco Use: Non-smoker Meaningful Use Info Meaningful Use Diagnoses (Choose all that apply): None applicable
[2020-05-17] MEDS: Atorvastatin Calcium 10 MG Tablet PO (21:48)
[2020-05-17 21:56] VITALS: PULSE 67; RESP 16; O2SAT 99
[2020-05-18 06:10] VITALS: BP 111/63; PULSE 59; RESP 16; TEMP 36.3; O2SAT 98
[2020-05-18] MEDS: Menthol/Lanolin/Calamine/Znox 113 GM Tube 1 APPLIC TOPICAL ×2 (06:11→21:10)
[2020-05-18] MEDS: Acetaminophen 500 MG Tablet 1000 MG PO ×3 (06:11→21:08)
[2020-05-18] MEDS: Lisinopril 5 MG Tablet PO (06:12)
[2020-05-18 06:13] VITALS: BP 111/63; PULSE 59
[2020-05-18] MEDS: Tamsulosin HCl 0.4 MG Capsule PO (06:13)
[2020-05-18] MEDS: Nystatin Powder 15gm Bottle 1 APPLIC TOPICAL ×2 (06:13→21:10)
[2020-05-18] MEDS: Levothyroxine 25 MCG TABLET PO (06:13)
[2020-05-18] MEDS: Metoprolol(XL)Succ 25 MG Tablet PO (06:13)
[2020-05-18] MEDS: Aspirin 81 MG TAB.CHEW PO (07:55)
--- NOTE | 2020-05-18 09:23 | CASEMGMT ---
Social Work BIMS and PHQ-9 completed for MDS assessment. Carlie Gonzáles, FISH WARDEN PLANING MACHINE OPERATOR
--- NOTE | 2020-05-18 11:24 | CASEMGMT ---
Addendum entered by Carlie Gonzáles 05/18/20 11:44: Left voicemail with Mikayla at [facility] of pt's DC date and services. Original Note: Social Work [facility] cannot accept pt due to staffing. Contacted several other agencies. Referral made to [facility]. Pt requesting information on recliner lift chair. Provided contact information for [facility] to deedee. Niece is still actively looking for nonskilled HHC. Carlie Gonzáles, ANU HAQUEW
[2020-05-18 13:07] VITALS: PULSE 60; RESP 16; O2SAT 95
[2020-05-18 16:16] VITALS: BP 132/42; PULSE 60; RESP 16; TEMP 36.6; O2SAT 95
[2020-05-18] MEDS: Atorvastatin Calcium 10 MG Tablet PO (21:10)
[2020-05-19 05:18] VITALS: BP 136/69; PULSE 58; RESP 16; TEMP 36.3; O2SAT 96
[2020-05-19 05:20] VITALS: BP 136/69; PULSE 58
[2020-05-19] MEDS: Levothyroxine 25 MCG TABLET PO (05:20)
[2020-05-19] MEDS: Tamsulosin HCl 0.4 MG Capsule PO (05:20)
[2020-05-19] MEDS: Metoprolol(XL)Succ 25 MG Tablet PO (05:20)
[2020-05-19] MEDS: Acetaminophen 500 MG Tablet 1000 MG PO ×3 (05:20→21:06)
[2020-05-19] MEDS: Lisinopril 5 MG Tablet PO (05:20)
[2020-05-19] MEDS: Menthol/Lanolin/Calamine/Znox 113 GM Tube 1 APPLIC TOPICAL ×2 (05:21→21:06)
[2020-05-19] MEDS: Nystatin Powder 15gm Bottle 1 APPLIC TOPICAL ×2 (05:21→21:07)
[2020-05-19] MEDS: Aspirin 81 MG TAB.CHEW PO (08:04)
[2020-05-19 08:05] LABS: Absolute Lymphocyte Count 1.49 X10^3/uL (0.83-4.51); Absolute Neutrophil Count 3.1 X10^3/uL (2.0-7.7); Basophil# 0.02 X10^3/uL; Basophil% 0.4 % (0-1); Eosinophil# 0.49 X10^3/uL; Eosinophils% 8.6 % (0-5); Hematocrit 33.5 % (40-54); Hemoglobin 11.1 g/dL (13.0-16.5); Lymphocyte # 1.49 X10^3/ul (4.0); Lymphocyte % 26.1 % (19-41); Mean Corp Hgb Conc 33.1 g/dL (32-36); Mean Corpuscular Hgb 34.7 pg (27.0-32.0); Mean Corpuscular Volume 104.7 fL (80-94); Monocyte# 0.61 X10^3/uL; Monocyte% 10.7 % (0-10); NRBC Flagged by Analyzer 0 % (0-5); Neutrophil # 3.07 X10^3/uL (2.7-7.7); Neutrophil % 53.8 % (47-70); Platelet Count 169 K/mm3 (150-450); RBC Distribution Width SD 53.7 fl (35.1-43.9); White Blood Count 5.7 K/mm3 (4.4-11.0)
[2020-05-19 08:29] LABS: Anion Gap 3 (5-15); BUN 16 mg/dL (7-18); BUN/Creat Ratio 17.3 RATIO (10-20); Calcium,Total 8.4 mg/dL (8.5-10.1); Chloride 110 mmol/L (98-107); Creatinine, Serum 0.93 mg/dL (0.70-1.30); EST Glomerular Filtration Rate 82 mL/min (>60); Est Glom Filt Rate - Afr Amer 100 mL/min (>60); Estimated Creatinine Clearance 59.24 ml/min; Glucose 88 mg/dL (74-106); Potassium 4.4 mmol/L (3.5-5.1); Sodium Level 140 mmol/L (136-145)
[2020-05-19 16:37] VITALS: BP 108/56; PULSE 58; RESP 14; TEMP 36.4; O2SAT 95
[2020-05-19] MEDS: Atorvastatin Calcium 10 MG Tablet PO (21:06)
[2020-05-20 05:01] VITALS: BP 142/64; PULSE 60; RESP 16; TEMP 36.3; O2SAT 96
[2020-05-20 05:02] VITALS: BP 142/64; PULSE 60
[2020-05-20] MEDS: Acetaminophen 500 MG Tablet 1000 MG PO ×2 (05:02→13:45)
[2020-05-20] MEDS: Metoprolol(XL)Succ 25 MG Tablet PO (05:02)
[2020-05-20] MEDS: Lisinopril 5 MG Tablet PO (05:02)
[2020-05-20] MEDS: Levothyroxine 25 MCG TABLET PO (05:03)
[2020-05-20] MEDS: Tamsulosin HCl 0.4 MG Capsule PO (05:03)
[2020-05-20] MEDS: Nystatin Powder 15gm Bottle 1 APPLIC TOPICAL (05:07)
[2020-05-20] MEDS: Menthol/Lanolin/Calamine/Znox 113 GM Tube 1 APPLIC TOPICAL (05:07)
[2020-05-20] MEDS: Aspirin 81 MG TAB.CHEW PO (07:53)
[2020-05-20 10:32] VITALS: PULSE 56; RESP 18; O2SAT 95
[2020-05-20 15:51] VITALS: BP 133/67; PULSE 63; RESP 16; TEMP 36.7; O2SAT 95
== END 2020-05-20 16:00 | disposition home health service (06) | DRG 559 ==
PROVIDERS: Admitting Provider Family Medicine Geriatric Medicine; Visit Provider Family Medicine Geriatric Medicine
DX: S72.002D Fracture of unspecified part of neck of left femur, subsequent encounter for closed fracture with routine healing (principal); I21.4 Non-ST elevation (NSTEMI) myocardial infarction; I50.22 Chronic systolic (congestive) heart failure; N39.0 Urinary tract infection, site not specified; W19.XXXD Unspecified fall, subsequent encounter; E03.9 Hypothyroidism, unspecified; I11.0 Hypertensive heart disease with heart failure; N40.0 Benign prostatic hyperplasia without lower urinary tract symptoms; I25.10 Atherosclerotic heart disease of native coronary artery without angina pectoris; E78.5 Hyperlipidemia, unspecified
CPT/HCPCS: 36415; 80048; 85025; 87426; 87635; 97110; 97116; 97162; 97166; 97530; 97535; 97802; A4216; U0003